=== PATIENT | female | born 1960 | race Caucasian/White ===

== ENCOUNTER → 2018-04-27 | Outpatient (CLI) | payer OTHER ==
--- NOTE | 2018-04-28 11:03 | Diagnostic Imaging Report ---
Indication: Routine screening. Comparison is made with prior mammogram from 08/25/2016 and 07/31/2015. 2-D and 3-D bilateral screening mammography was performed with CAD. Scattered fibroglandular densities are identified bilaterally. The parenchymal pattern is stable. No mass or malignant-appearing microcalcifications are seen. The axillae are unremarkable. Impression: BI-RADS category 1 No mammographic features suspicious for malignancy are identified. ACR BI-RADS Category 1: Negative. Result letter will be mailed to the patient. Note: At least 10% of breast cancer is not imaged by mammography. Dictated by: Dictated on workstation # [id number]
== END ==
LOC: RAD 15:33
PROVIDERS: ATTEND Obstetrics & Gynecology
DX: Z12.31 Encounter for screening mammogram for malignant neoplasm of breast (principal)
CPT/HCPCS: 77067

== ENCOUNTER 2018-05-06 10:26 | Outpatient (CLI) | payer OTHER ==
[~2018-05-06] VITALS: Ht 160 cm; Wt 53.3 kg
[2018-05-06] MEDS ORDERED: MEDR2.5T6 PO (10:43)
[2018-05-06] MEDS ORDERED: ESTR1TAB24 PO (10:43)
[2018-05-06] MEDS ORDERED: METO-387 PO (10:43)
[2018-05-06] MEDS ORDERED: ASPI-586 PO (10:43)
[2018-05-06 10:45] VITALS: BP 116/81
[2018-05-06 11:20] LABS: BASOPHILS % (AUTO) 1 % (0-10); EOSINOPHILS # (AUTO) 0.3 10^3/uL (0.0-0.3); EOSINOPHILS % (AUTO) 4 % (0-10); HEMATOCRIT 40 % (35-52); HEMOGLOBIN 13.3 G/DL (11.5-16.0); LYMPHOCYTES # (AUTO) 2.7 X 10^3 (1.0-4.0); LYMPHOCYTES % (AUTO) 41 % (12-44); MEAN CORPUSCULAR HEMOGLOBIN 32 PG (25-34); MEAN CORPUSCULAR HGB CONC 33 G/DL (32-36); MEAN CORPUSCULAR VOLUME 96 FL (80-99); MEAN PLATELET VOLUME 9.3 FL (7.4-10.4); MONOCYTES # (AUTO) 0.5 X 10^3 (0.0-1.0); MONOCYTES % (AUTO) 7 % (0-12); NEUTROPHILS # (AUTO) 3.2 X 10^3 (1.8-7.8); NEUTROPHILS % (AUTO) 48 % (42-75); PLATELET COUNT 257 10^3/uL (130-400); RED BLOOD COUNT 4.16 10^6/uL (4.35-5.85); RED CELL DISTRIBUTION WIDTH 12.1 % (10.0-14.5); WHITE BLOOD COUNT 6.6 10^3/uL (4.3-11.0)
== END 2018-05-06 12:17 | disposition home or self-care (01) ==
LOC: PREOP 10:26
PROVIDERS: ATTEND Obstetrics & Gynecology
DX: Z01.812 Encounter for preprocedural laboratory examination (principal); Z11.2 Encounter for screening for other bacterial diseases; N95.0 Postmenopausal bleeding; D64.9 Anemia, unspecified
CPT/HCPCS: 36415; 85025; 86850; 86900; 86901; 87081

== ENCOUNTER 2018-05-13 12:10 | Day surgery (SDC) | payer OTHER ==
[~2018-05-13] VITALS: Ht 160 cm; Wt 51.7 kg
[~2018-05-13 12:10] MED LIST: ASPI-586 PO; ESTR1TAB24 PO; MEDR2.5T6 PO; METO-387 PO
--- OUTSIDE RECORDS SUMMARY | 2018-05-13 12:18 | XMS REPORT ---
Author Author BREE CHRISTENSEN [facility] Address [address] [place] [address] Care Team Providers Care Disaster Response Director Name Role Phone BREE CHRISTENSEN Unavailable PROBLEMS Type Condition ICD9-CM Code PXT44-BB Code Onset Dates Condition Status SNOMED Code Problem ZOSTAVAX DX V05.8 Active 97187456 Problem Dysuria 788.1 Active 23472577 Problem Need for prophylactic vaccination and inoculation, Influenza V04.81 Active 176238112 Problem Periodontal disease, unspecified K05.6 Active 0722356 Problem Allergy, subsequent encounter T78.40XD Active 342548822 Problem Unspecified essential hypertension 401.9 Active 71148960 Problem Lateral epicondylitis of elbow 726.32 Active 021555527 Problem Encounter for immunization Z23 Active 156386553 Problem Pure hypercholesterolemia 272.0 Active 680961031 ALLERGIES No Information ENCOUNTERS Encounter Location Date Diagnosis [facility] [address] [address] Feb, Encounter for immunization Z23 [facility] [address] [id number] Jan, Periodontal disease, unspecified K05.6 and Encounter for dental examination and cleaning without abnormal findings Z01.20 [facility] [address] [id number] Nov, Dental examination Z01.20 [facility] [address] [address] Nov, Tooth sensitivity K03.89 [facility] [address] [id number] Oct, Dental examination Z01.20 [facility] [id number] [place] [address] [id number] September, Dental examination Z01.20 [facility] [address] [id number] [address] September, [facility] [id number] [place] [address] 09294- 0636 September, [facility] [id number] [place] [address] [id number] Aug, Dental examination Z01.20 [facility] [id number] [place] [address] [id number] Aug, Dental examination Z01.20 [facility] [id number] [place] [address] [id number] Jul, Dental examination Z01.20 [facility] [id number] [place] [address] 18522- 0256 Jul, Dental examination Z01.20 [facility] [id number] [place] [address] 09027- 7860 Feb, Encounter for immunization Z23 [facility] [id number] [place] [address] 46715- 3282 Jan, Dental examination Z01.20 [facility] [id number] [place] [address] 90690- 7933 Dec, Dental examination Z01.20 [facility] [address] [place] [address] 19747- 3628 Aug, Allergy, subsequent encounter T78.40XD [facility] [address] [place] [address] 26894- 2298 Jul, Dental examination Z01.20 [facility] [id number] [place] [address] 52994- 2440 Feb, [facility] [id number] [place] [address] 87938- 4220 Dec, Dental examination Z01.20 [facility] [id number] [place] [address] [phone] -[phone] 16 Jul, 2015 [facility] [id number] [place] [address] 12408- 1392 15 Jul, 2015 Encounter for dental examination and cleaning without abnormal findings Z01.20 [facility] [id number] [place] [address] 08090- 4625 15 Jul, 2015 Encounter for immunization Z23 [facility] [id number] [place] [address] [phone] -[phone] 03 Jul, 2015 Needlestick injury accident W27.3XXA [facility] [address] 15479- 4116 Feb, Encounter for immunization Z23 [facility] [id number] [place] [address] [id number] Dec, Dental examination V72.2 [facility] [address] [id number] Nov, Dental examination V72.2 [facility] [id number] [place] [address] 21985- 3035 Oct, [facility] [id number] [place] [address] 68765- 0434 September, [facility] [id number] [place] [address] 01860- 7259 September, [facility] [id number] [place] [address] 61176- 7125 September, [facility] [id number] [place] [address] 63296- 9392 Aug, [facility] [id number] [place] [address] 42597- 4189 Aug, [facility] [id number] [place] [address] 53347- 4976 May, [facility] [id number] [place] [address] 41541- 6896 May, [facility] [place] [facility] [address] [id number] [place] [address]- 9966 Mar, [facility] [place] [facility] [address] [id number] [place] [address]- 3526 Mar, [facility] [place] [facility] [address] [id number] [place] [address]- 1056 Feb, [facility] [place] [facility] [address] [id number] [place] [address]- 9634 Feb, [facility] [place] [facility] [address] [id number] [place] [address]- 6212 Dec, [facility] [place] [facility] [address] [id number] [place] [address]- 9452 Dec, [facility] [place] [facility] [address] [id number] [place] [address]- 3168 Nov, [facility] [place] [facility] [address] [id number] [place] [address]- 9160 Nov, [facility] [place] [facility] [address] [id number] [place] [address]- 6766 Nov, [facility] [place] [facility] [address] [id number] [place] [address]- 3701 Nov, [facility] [place] [facility] [address] [id number] [place] [address]- 7521 Oct, [facility] [place] [facility] [address] [id number] [place] [address]- 2308 Oct, [facility] [place] [facility] [address] [id number] [place] [address]- 2876 Oct, [facility] [place] [facility] [address] [id number] [place] [address]- 5823 May, [facility] [place] [facility] [address] [id number] [place] [address]- 2410 May, [facility] [place] [facility] [address] [id number] [place] [address]- 7706 May, [facility] [address] [id number] [place] [address]- 1930 May, [facility] [place] [facility] [address] [id number] [place] [address]- 5565 May, [facility] [address] [id number] [place] [address]- 4918 May, [facility] [place] [facility] [address] [id number] [place] [address]- 3616 Apr, [facility] [address] [id number] [place] [address]- 5480 Apr, [facility] [place] [facility] [address] [id number] [place] [address]- 9788 Feb, [facility] [address] [facility] [id number] [place] [address]- 2781 Feb, [facility] [address] [id number] [place] [address]- 5076 Apr, [facility] [place] [facility] [address] [id number] [place] [address]- 4632 Apr, [facility] [address] [facility] [id number] [place] [address]- 2306 Feb, [facility] [place] [facility] [address] [id number] [place] [address]- 4459 Feb, [facility] [place] [facility] [address] [id number] [place] [address]- 4605 Feb, [facility] [place] [facility] [address] [id number] [place] [address]- 0874 Feb, [facility] [place] [facility] [address] [facility] [id number] [place] [address]- 3518 Oct, [facility] [place] [facility] [address] [id number] [place] [address]- 3620 Jul, [facility] [address] [facility] [id number] [address]- 2546 May, [facility] [address] [id number] [address]- 2546 May, [facility] [address] [id number] [address]- 2546 May, [facility] [address] [address]- 2546 May, [facility] [address] [id number], [place] [address]- 2546 Mar, [facility] [address] [address]- 5196 Apr, [facility] [address] [id number] [address]- 2546 Feb, [facility] [address] [id number] [address]- 2816 Feb, IMMUNIZATIONS Vaccine Route Administration Date Status FLULAVAL QUAD 0.5ML (6 MO & UP) 2017 IM Intramuscular Mar 10, 2018 Administered SOCIAL HISTORY Never Assessed REASON FOR VISIT Flu shot- Robin Ying RN PLAN OF CARE VITAL SIGNS MEDICATIONS Unknown Medications RESULTS No Results PROCEDURES Procedure Date Ordered Result Body Site FLULAVAL QUAD 0.5ML (6 MO AND UP) 2018 Mar 10, 2018 SINGLE IMMUNIZATION ADMIN Mar 10, 2018 INSTRUCTIONS MEDICATIONS ADMINISTERED No Known Medications
--- OUTSIDE RECORDS SUMMARY | 2018-05-13 12:18 | XMS REPORT ---
Author Author JERICA CHE [facility] Address [address] [place] [address] Care Team Providers Care Pig Machine Operator Helper Name Role Phone JERICA CHE Unavailable PROBLEMS Type Condition ICD9-CM Code XUF05-XF Code Onset Dates Condition Status SNOMED Code Problem ZOSTAVAX DX V05.8 Active 05246848 Problem Dysuria 788.1 Active 46058166 Problem Need for prophylactic vaccination and inoculation, Influenza V04.81 Active 424334537 Problem Periodontal disease, unspecified K05.6 Active 5965437 Problem Allergy, subsequent encounter T78.40XD Active 192747070 Problem Unspecified essential hypertension 401.9 Active 74565154 Problem Lateral epicondylitis of elbow 726.32 Active 927132985 Problem Encounter for immunization Z23 Active 474661846 Problem Pure hypercholesterolemia 272.0 Active 344443544 ALLERGIES No Known Allergies ENCOUNTERS Encounter Location Date Diagnosis [facility] [id number] [place] [address] [id number] Jan, Periodontal disease, unspecified K05.6 and Encounter for dental examination and cleaning without abnormal findings Z01.20 [facility] [id number] [place] [address] [id number] Nov, Dental examination Z01.20 [facility] [place] [id number] [place] [address] [id number] 3744 Nov, Tooth sensitivity K03.89 [facility] [id number] [place] [address] [id number] Oct, Dental examination Z01.20 [facility] [id number] [place] [address] [phone] September, Dental examination Z01.20 [facility] [place] [id number] [place] [address] 43952 2546 September, [facility] [place] [address], [place] [address]- 7076 September, [facility] [address] [id number] Aug, Dental examination Z01.20 [facility] [address] [id number] Aug, Dental examination Z01.20 [facility] [id number] [place] [address] [id number] Jul, Dental examination Z01.20 [facility] [place] [id number] [place] [address] 15230- 2906 Jul, Dental examination Z01.20 [facility] [place] [address] [place] [address] 203875- 3786 Feb, Encounter for immunization Z23 [facility] [place] [id number] [place] [address] 937794- 6866 Jan, Dental examination Z01.20 [facility] [place] [address] [place] [address] 77765- 0383 Dec, Dental examination Z01.20 [facility] [place] [address], [place] [address]- 8816 Aug, Allergy, subsequent encounter T78.40XD [facility] [place] [address], [place] [address]- 1826 Jul, Dental examination Z01.20 [facility] [place] [address] 3624 Feb, [facility] [place] [address] 4416 Dec, Dental examination Z01.20 [facility] [address], [place] [address] -2046 Jul, [facility] [place] [address]- 1295 15 Jul, 2015 Encounter for dental examination and cleaning without abnormal findings Z01.20 [facility] [place] [id number] [place] [address] 67492- 4336 15 Jul, 2015 Encounter for immunization Z23 [facility] [address] [place] [address] [phone] -[phone] 03 Jul, 2015 Needlestick injury accident W27.3XXA [facility] [place] [id number] [place] [address] 78401- 9876 Feb, Encounter for immunization Z23 [facility] [id number] [place] [address] [id number] Dec, Dental examination V72.2 [facility] [address] [id number] Nov, Dental examination V72.2 [facility] [place] [id number] [place] [address] 80616- 6126 Oct, [facility] [place] [address] [place] [address] 43260- 7253 September, [facility] [place] [id number] [place] [address] 34708- 2811 September, [facility] [place] [address], [place] [address]- 2787 September, [facility] [place] [address] [place] [address] 52356- 5946 Aug, [facility] [place] [address] [place] [address] 70359- 1450 Aug, [facility] [place] [id number] [place] [address] 225926- 3368 14 May, 2014 [facility] [place] [address] [place] [address] 790312- 5908 14 May, 2014 [facility] [place] [id number] [place] [address] 19737- 2618 Mar, [facility] [place] [facility] [address] [id number] [place] [address]- 5939 Mar, [facility] [place] [facility] [address] [id number] [place] [address]- 8988 Feb, [facility] [place] [facility] [address] [id number] [place] [address]- 1984 Feb, [facility] [place] [facility] [address] [id number] [place] [address]- 8838 Dec, [facility] [place] [facility] [address] [id number] [place] [address]- 5288 Dec, [facility] [place] [facility] [address] [id number] [place] [address]- 4808 Nov, [facility] [place] [facility] [address] [id number] [place] [address]- 5413 Nov, [facility] [place] [facility] [address] [id number] [place] [address]- 6956 Nov, [facility] [place] [facility] [address] [id number] [place] [address]- 5895 Nov, [facility] [place] [facility] [address] [facility] [id number] [place] [address]- 4366 Oct, [facility] [place] [facility] [address] [id number] [place] [address]- 0284 Oct, [facility] [place] [facility] [address] [id number] [place] [address]- 1931 Oct, [facility] [place] [facility] [address] [id number] [place] [address]- 4946 May, [facility] [place] [facility] [address] [id number] [place] [address]- 7403 May, [facility] [place] [facility] [address] [id number] [place] [address]- 0836 May, [facility] [place] [facility] [address] [id number] [place] [address]- 1050 May, [facility] [place] [facility] [address] [id number] [place] [address]- 0461 May, [facility] [place] [facility] [address] [id number] [place] [address]- 1856 May, [facility] [place] [facility] [address] [id number] [place] [address]- 0038 Apr, [facility] [place] [facility] [address] [id number] [place] [address]- 4282 Apr, [facility] [place] [facility] [address] [id number] [place] [address]- 5949 Feb, [facility] [place] [facility] [address] [id number] [place] [address]- 8170 Feb, [facility] [place] [facility] [address] [id number] [place] [address]- 7658 Apr, [facility] [place] [facility] [address] [id number] [place] [address]- 2348 Apr, [facility] [place] [facility] [address] [id number] [place] [address]- 5352 Feb, [facility] [place] [facility] [address] [id number] [place] [address]- 5136 Feb, [facility] [place] [facility] [address] [id number] [place] [address]- 6336 Feb, [facility] [place] [facility] [address] [id number] [place] [address]- 5369 Feb, [facility] [place] [facility] [address] [id number] [place] [address]- 2944 Oct, [facility] [place] [facility] [address] [id number] [place] [address]- 1586 Jul, [facility] [place] [facility] [address] [id number] [place] [address]- 0791 May, [facility] [place] [address] [facility] [id number], [place] [address]- 1156 May, [facility] [place] [address] [id number], [place] [address]- 9020 May, [facility] [place] [address] [id number], [place] [address]- 9498 May, [facility] [place] [address] 1525 Mar, [facility] [place] [id number], [place] [address]- 2217 Apr, [facility] [place] [address], [place] [address]- 2377 Feb, [facility] [place] [address], [place] [address]- 1843 Feb, IMMUNIZATIONS No Known Immunizations SOCIAL HISTORY Never Assessed REASON FOR VISIT Dental Hygiene Recare PLAN OF CARE Activity Details Follow Up 6 Months Reason:recare 3011 VITAL SIGNS Height 63 in 2018-02-03 Blood pressure systolic 122 mmHg 2018-02-03 Blood pressure diastolic 78 mmHg 2018-02-03 MEDICATIONS Medication Instructions Dosage Frequency Start Date End Date Duration Status Pseudoephedrine HCl 60 mg Orally every 6 hrs 1 tablet as needed 6h 24 Aug, 2016 0 days Active Progesterone 100 MG Orally Once a day 2 capsules at bedtime 24h Active Aspirin Adult Low Dose Active Sudafed 30 mg Orally every 6 hrs 1-2 tablet as needed 6h 18 Feb, 2016 Active Estradiol 1 MG Orally Once a day 1 tablet 24h Active Provera 2.5 MG Orally Once a day 2 tablets 24h Not-Taking Estriol Not-Taking Metoprolol Tartrate 25 MG Orally Twice a day 1 tablet 12h Active Chlorhexidine Gluconate 0.12 % Mouth/Throat twice a day as directed 12h 7 days Not-Taking Toprol XL 25 MG Orally Once a day 1 tablet 24h 08 Oct, 2014 Not- Taking RESULTS No Results PROCEDURES Procedure Date Ordered Result Body Site PERIODIC ORAL EXAMINATION Feb 03, 2018 PROPHYLAXIS - ADULT Feb 03, 2018 [facility] Employee/Board adjustment Feb 03, 2018 TOPICAL FLUORIDE VARNISH Feb 03, 2018 Billing Notes on claim Feb 03, 2018 INSTRUCTIONS MEDICATIONS ADMINISTERED No Known Medications
--- OUTSIDE RECORDS SUMMARY | 2018-05-13 12:18 | XMS REPORT ---
Author Author JOSELORELEI BRUNO [facility] Address Unknown Care Team Providers Care Greek Professor Name Role Phone LORELEI GONZALEZ Unavailable PROBLEMS Type Condition ICD9-CM Code EPC46-KU Code Onset Dates Condition Status SNOMED Code Problem ZOSTAVAX DX V05.8 Active 85050336 Problem Dysuria 788.1 Active 62387215 Problem Need for prophylactic vaccination and inoculation, Influenza V04.81 Active 917781838 Problem Periodontal disease, unspecified K05.6 Active 4224944 Problem Allergy, subsequent encounter T78.40XD Active 065303042 Problem Unspecified essential hypertension 401.9 Active 84692022 Problem Lateral epicondylitis of elbow 726.32 Active 825114926 Problem Encounter for immunization Z23 Active 325611254 Problem Pure hypercholesterolemia 272.0 Active 277371253 ALLERGIES No Known Allergies ENCOUNTERS Encounter Location Date Diagnosis [facility] [id number] [place] [address] [phone] Jan, Periodontal disease, unspecified K05.6 and Encounter for dental examination and cleaning without abnormal findings Z01.20 [facility] [id number] [place] [address] [phone] Nov, Dental examination Z01.20 [facility] [address] [place] [address] [id number]- [phone] Nov, Tooth sensitivity K03.89 [facility] [id number] [place] [address] [phone] Oct, Dental examination Z01.20 [facility] [id number] [place] [address] [id number] September, Dental examination Z01.20 [facility] [id number] [place] [address] [phone] September, [facility] [address] [address] 6906 September, [facility] [id number] [place] [address] [phone] Aug, Dental examination Z01.20 [facility] [id number] [place] [address] [id number] Aug, Dental examination Z01.20 [facility] [id number] [place] [address] [phone] Jul, Dental examination Z01.20 [facility] [id number] [place] [address] 19619- 3446 Jul, Dental examination Z01.20 [facility] [id number] [place] [address] [phone]- 2806 Feb, Encounter for immunization Z23 [facility] [id number] [place] [address] 51603- 6045 Jan, Dental examination Z01.20 [facility] [id number] [place] [address] 51174- 9585 Dec, Dental examination Z01.20 [facility] [id number] [place] [address] 99467- 5506 Aug, Allergy, subsequent encounter T78.40XD [facility] [id number] [place] [address] 47711- 2429 Jul, Dental examination Z01.20 [facility] [id number] [place] [address] 56022- 1194 Feb, [facility] [id number] [place] [address] 26051- 0462 Dec, Dental examination Z01.20 [facility] [address] [address] Jul, [facility] [id number] [place] [address] 50743- 6408 Jul, Encounter for dental examination and cleaning without abnormal findings Z01.20 [facility] [address] [address]- 4107 15 Jul, 2015 Encounter for immunization Z23 [facility] [id number] [place] [address] [phone] -[phone] 03 Jul, 2015 Needlestick injury accident W27.3XXA [facility] [id number] [place] [address] 62254- 0026 Feb, Encounter for immunization Z23 [facility] [id number] [place] [address] [phone] Dec, Dental examination V72.2 [facility] [id number] [place] [address] [id number] Nov, Dental examination V72.2 [facility] [id number] [place] [address] 89069- 7467 Oct, [facility] [id number] [place] [address] 36421- 3559 September, [facility] [id number] [place] [address] 27548- 7910 September, [facility] [id number] [place] [address] 67825- 6548 September, [facility] [id number] [place] [address] 91773- 1171 Aug, [facility] [id number] [place] [address] 02610- 0104 Aug, [facility] [id number] [place] [address] 56983- 0477 May, [facility] [id number] [place] [address] 85212- 2814 May, [facility] [address] [place] [address] 43833- 9543 Mar, [facility] [place] [facility] [address] [id number] [place] [address]- 2546 Mar, [facility] [place] [facility] [address] [id number] [place] [address]- 4732 Feb, [facility] [place] [facility] [address] [id number] [place] [address]- 2546 Feb, [facility] [place] [facility] [address] [id number] [place] [address]- 2546 Dec, [facility] [place] [facility] [address] [id number] [place] [address]- 6746 Dec, [facility] [place] [facility] [address] [id number] [place] [address]- 7715 Nov, [facility] [place] [facility] [address] [id number] [place] [address]- 6107 Nov, [facility] [place] [facility] [address] [id number] [place] [address]- 1084 Nov, [facility] [place] [facility] [address] [id number] [place] [address]- 7194 Nov, [facility] [place] [facility] [address] [id number] [place] [address]- 8787 Oct, [facility] [place] [facility] [address] [id number] [place] [address]- 3061 Oct, [facility] [place] [facility] [address] [id number] [place] [address]- 7265 Oct, [facility] [place] [facility] [address] [id number] [place] [address]- 7049 May, [facility] [place] [facility] [address] [id number] [place] [address]- 9652 May, [facility] [place] [facility] [address] [id number] [place] [address]- 5486 May, [facility] [place] [facility] [address] [id number] [place] [address]- 7877 May, [facility] [place] [facility] [address] [id number] [place] [address]- 0439 May, [facility] [place] [facility] [address] [id number] [place] [address]- 3247 May, [facility] [place] [facility] [address] [id number] [place] [address]- 7558 Apr, [facility] [place] [facility] [address] [id number] [place] [address]- 6728 Apr, [facility] [place] [facility] [address] [id number] [place] [address]- 3256 Feb, [facility] [place] [facility] [address] [id number] [place] [address]- 4043 Feb, [facility] [place] [facility] [address] [id number] [place] [address]- 3194 Apr, [facility] [place] [facility] [address] [id number] [place] [address]- 0277 Apr, [facility] [place] [facility] [address] [id number] [place] [address]- 5203 Feb, [facility] [place] [facility] [address] [id number] [place] [address]- 8187 Feb, [facility] [place] [facility] [address] [id number] [place] [address]- 1055 Feb, [facility] [place] [facility] [address] [id number] [place] [address]- 4306 Feb, [facility] [place] [facility] [address] [id number] [place] [address]- 0465 Oct, [facility] [place] [facility] [address] [id number] [place] [address]- 1486 Jul, [facility] [place] [facility] [address] [id number] [place] [address]- 0584 May, [facility] [place] [facility] [address] [facility] [id number] [place] [address]- 2154 May, [facility] [address] [facility] [id number] [place] [address]- 1911 May, [facility] [address] [facility] [id number] [place] [address]- 5507 May, [facility] [address] [facility] [id number] [place]- 2913 Mar, [facility] [address] [facility] [id number] [place] [address]- 2889 Apr, [facility] [address] [facility] [id number] [place] [address]- 4265 Feb, [facility] [address] [facility] [id number] [place] [address]- 6417 Feb, IMMUNIZATIONS No Known Immunizations SOCIAL HISTORY Never Assessed REASON FOR VISIT jeremias PLAN OF CARE Activity Details Follow Up prn Reason:as needed VITAL SIGNS Height 63 in 2017-12-22 Blood pressure systolic 131 mmHg 2017-12-22 Blood pressure diastolic 79 mmHg 2017-12-22 MEDICATIONS Medication Instructions Dosage Frequency Start Date End Date Duration Status Aspirin Adult Low Dose Active Metoprolol Tartrate 25 MG Orally Twice a day 1 tablet 12h Active Estradiol 1 MG Orally Once a day 1 tablet 24h Active Toprol XL 25 MG Orally Once a day 1 tablet 24h 08 Oct, 2014 Not- Taking Progesterone 100 MG Orally Once a day 2 capsules at bedtime 24h Active Sudafed 30 mg Orally every 6 hrs 1-2 tablet as needed 6h 18 Feb, 2016 Active Chlorhexidine Gluconate 0.12 % Mouth/Throat twice a day as directed 12h 7 days Active Pseudoephedrine HCl 60 mg Orally every 6 hrs 1 tablet as needed 6h Aug, 0 days Active Provera 2.5 MG Orally Once a day 2 tablets 24h Not-Taking Estriol Not-Taking RESULTS No Results PROCEDURES Procedure Date Ordered Result Body Site LTD ORAL EVALUATION - PROBLEM FOCUS December 22, 2017 [facility] Employee/Board adjustment December 22, 2017 Billing Notes on claim December 22, 2017 INSTRUCTIONS MEDICATIONS ADMINISTERED No Known Medications
--- OUTSIDE RECORDS SUMMARY | 2018-05-13 12:18 | XMS REPORT ---
Author Author YAHAIRA GALLAGHER [facility] Address [address] [place] [address] Care Team Providers Care Pattern Grader Name Role Phone YAHAIRA GALLAGHER Unavailable PROBLEMS Type Condition ICD9-CM Code WKO50-QD Code Onset Dates Condition Status SNOMED Code Problem ZOSTAVAX DX V05.8 Active 27921166 Problem Dysuria 788.1 Active 74132307 Problem Need for prophylactic vaccination and inoculation, Influenza V04.81 Active 955222402 Problem Periodontal disease, unspecified K05.6 Active 3482362 Problem Allergy, subsequent encounter T78.40XD Active 424886072 Problem Unspecified essential hypertension 401.9 Active 21074536 Problem Lateral epicondylitis of elbow 726.32 Active 114807704 Problem Encounter for immunization Z23 Active 426653652 Problem Pure hypercholesterolemia 272.0 Active 904822650 ALLERGIES No Information ENCOUNTERS Encounter Location Date Diagnosis [facility] [address] [id number] Jan, Periodontal disease, unspecified K05.6 and Encounter for dental examination and cleaning without abnormal findings Z01.20 [facility] [id number] [place] [address] [id number] Nov, Dental examination Z01.20 [facility] [id number] [place] [address] [phone]- 7269 Nov, Tooth sensitivity K03.89 [facility] [id number] [place] [address] [phone] Oct, Dental examination Z01.20 [facility] [id number] [place] [address] [id number] September, Dental examination Z01.20 [facility] [id number] [place] [address] [phone] September, [facility] [address] [address]- 4886 September, [facility] [id number] [place] [address] [id number] Aug, Dental examination Z01.20 [facility] [id number] [place] [address] [phone] Aug, Dental examination Z01.20 [facility] [id number] [place] [address] [id number] Jul, Dental examination Z01.20 [facility] [id number] [place] [address] 01875- 6356 Jul, Dental examination Z01.20 [facility] [id number] [place] [address] 248048- 8876 Feb, Encounter for immunization Z23 [facility] [id number] [place] [address] 23991- 6561 Jan, Dental examination Z01.20 [facility] [address] [place] [address] 58795- 5099 Dec, Dental examination Z01.20 [facility] [id number] [place] [address] 42447- 2378 Aug, Allergy, subsequent encounter T78.40XD [facility] [address] [place] [address] 16092- 8994 Jul, Dental examination Z01.20 [facility] [address] [place] [address] 979998- 2176 Feb, [facility] [id number] [place] [address] 163436- 0604 Dec, Dental examination Z01.20 [facility] [address] [address] -1108 Jul, [facility] [id number] [place] [address] 92107- 9426 15 Jul, 2015 Encounter for dental examination and cleaning without abnormal findings Z01.20 [facility] [address] [address]- 2676 15 Jul, 2015 Encounter for immunization Z23 [facility] [address] [address] 2546 03 Jul, 2015 Needlestick injury accident W27.3XXA [facility] [id number] [place] [address] 22469- 8636 Feb, Encounter for immunization Z23 [facility] [id number] [place] [address] [id number] Dec, Dental examination V72.2 [facility] [id number] [place] [address] [id number] Nov, Dental examination V72.2 [facility] [id number] [place] [address] 64540- 2946 Oct, [facility] [address] [place] [address] 04268- 2180 September, [facility] [id number] [place] [address] 773279- 2416 September, [facility] [address] [place] [address] 638958- 6029 September, [facility] [address] [place] [address] 653585- 2374 Aug, [facility] [address] [place] [address] 51660- 9065 Aug, [facility] [id number] [place] [address] 12835- 4910 May, [facility] [address] [address]- 6146 May, [facility] [address] [place] [address] 56846- 8958 Mar, [facility] [place] [facility] [address] [id number] [place] [address]- 2743 Mar, [facility] [place] [facility] [address] [id number] [place] [address]- 7827 Feb, [facility] [place] [facility] [address] [id number] [place] [address]- 4466 Feb, [facility] [place] [facility] [address] [id number] [place] [address]- 6371 Dec, [facility] [place] [facility] [address] [id number] [place] [address]- 0444 Dec, [facility] [place] [facility] [address] [id number] [place] [address]- 6499 Nov, [facility] [place] [facility] [address] [id number] [place] [address]- 6241 Nov, [facility] [place] [facility] [address] [id number] [place] [address]- 5943 Nov, [facility] [place] [facility] [address] [id number] [place] [address]- 7525 Nov, [facility] [place] [facility] [address] [id number] [place] [address]- 6111 Oct, [facility] [place] [facility] [address] [id number] [place] [address]- 6214 Oct, [facility] [place] [facility] [address] [id number] [address]- 6502 Oct, [facility] [place] [facility] [address] [id number] [place] [address]- 2921 May, [facility] [place] [facility] [address] [id number] [place] [address]- 5055 May, [facility] [place] [facility] [address] [id number] [place] [address]- 6648 May, [facility] [place] [facility] [address] [id number] [place] [address]- 1274 May, [facility] [place] [facility] [address] [id number] [place] [address]- 4312 May, [facility] [place] [facility] [address] [id number] [place] [address]- 7273 May, [facility] [place] [facility] [address] [id number] [place] [address]- 1168 Apr, [facility] [place] [facility] [address] [id number] [place] [address]- 3624 Apr, [facility] [place] [facility] [address] [id number] [place] [address]- 5616 Feb, [facility] [place] [facility] [address] [id number] [place] [address]- 2896 Feb, [facility] [place] [facility] [address] [id number] [place] [address]- 6299 Apr, [facility] [place] [facility] [address] [id number] [place] [address]- 5018 Apr, [facility] [place] [facility] [address] [id number] [place] [address]- 2953 Feb, [facility] [place] [facility] [address] [facility] [id number] [place] [address]- 8501 Feb, [facility] [place] [facility] [address] [id number] [place] [address]- 5470 Feb, [facility] [place] [facility] [address] [id number] [place] [address]- 5558 Feb, [facility] [place] [facility] [address] [id number] [place] [address]- 8124 Oct, [facility] [place] [facility] [address] [id number] [place] [address]- 1785 Jul, [facility] [place] [facility] [address] [facility] [id number] [place] [address]- 0155 May, [facility] [place] [facility] [id number] [address] 2546 May, [facility] [address] [address]- 0176 May, [facility] [address] [address]- 2546 May, [facility] [address] [address] 2546 Mar, [facility] [address] [address]- 7812 Apr, [facility] [address] [address]- 3536 Feb, [facility] [address] [address]- 0127 Feb, IMMUNIZATIONS No Known Immunizations SOCIAL HISTORY Never Assessed REASON FOR VISIT Dental Assessment PLAN OF CARE Activity Details Follow Up prn Reason: VITAL SIGNS MEDICATIONS No Known Medications RESULTS No Results PROCEDURES Procedure Date Ordered Result Body Site INTRAORL-PERIAPICAL 1 FILM 47310 December 16, 2017 INTRAORL-PERIAPICAL EA ADD FILM December 16, 2017 SCREENING OF A PATIENT December 16, 2017 BITEWING - SINGLE FILM December 16, 2017 Billing Notes on claim December 16, 2017 [facility] Employee/Board adjustment December 16, 2017 INSTRUCTIONS MEDICATIONS ADMINISTERED No Known Medications
--- OUTSIDE RECORDS SUMMARY | 2018-05-13 12:19 | XMS REPORT ---
Author Author LORELEI GONZALEZ [facility] Address Unknown Care Team Providers Care Business Excellence Leader Name Role Phone LORELEI GONZALEZ Unavailable PROBLEMS Type Condition ICD9-CM Code KRJ25-HY Code Onset Dates Condition Status SNOMED Code Problem Need for prophylactic vaccination and inoculation, Influenza V04.81 Active 605861873 Problem ZOSTAVAX DX V05.8 Active 94827991 Problem Allergy, subsequent encounter T78.40XD Active 284658919 Problem Encounter for immunization Z23 Active 550563274 Problem Lateral epicondylitis of elbow 726.32 Active 191131671 Problem Dysuria 788.1 Active 74808996 Problem Pure hypercholesterolemia 272.0 Active 690844084 Problem Unspecified essential hypertension 401.9 Active 67983801 ALLERGIES No Known Allergies ENCOUNTERS Encounter Location Date Diagnosis [facility] [id number] [place] [address] 97702- 2332 Dec, [facility] [id number] [place] [address] [id number] Nov, Dental examination Z01.20 [facility] [id number] [place] [address] 94673- 6616 Nov, Tooth sensitivity K03.89 [facility] [id number] [place] [address] [id number] Oct, Dental examination Z01.20 [facility] [id number] [place] [address] [id number] September, Dental examination Z01.20 [facility] [id number] [place] [address] 69274- 2438 September, [facility] [id number] [place] [address] 10103- 0533 September, [facility] [address] [id number] Aug, Dental examination Z01.20 [facility] [id number] [place] [address] [id number] Aug, Dental examination Z01.20 [facility] [id number] [place] [address] [id number] Jul, Dental examination Z01.20 [facility] [id number] [place] [address] 693707- 0734 Jul, Dental examination Z01.20 [facility] [id number] [place] [address] 63352- 9840 Feb, Encounter for immunization Z23 [facility] [id number] [place] [address] 83517- 9812 Jan, Dental examination Z01.20 [facility] [id number] [place] [address] 48631- 0912 Dec, Dental examination Z01.20 [facility] [id number] [place] [address] 30941- 9021 Aug, Allergy, subsequent encounter T78.40XD [facility] [id number] [place] [address] 28038- 8283 Jul, Dental examination Z01.20 [facility] [address] [place] [address] 89734- 4382 Feb, [facility] [id number] [place] [address] 23097- 2201 Dec, Dental examination Z01.20 [facility] [id number] [place] [address] 77456 -6084 Jul, [facility] [id number] [place] [address] 59683- 6399 15 Jul, 2015 Encounter for dental examination and cleaning without abnormal findings Z01.20 [facility] [id number] [place] [address] 99338- 1226 15 Jul, 2015 Encounter for immunization Z23 [facility] [address] [address]2108 Jul, Needlestick injury accident W27.3XXA [facility] [address], [place] [address]- 8145 Feb, Encounter for immunization Z23 [facility] [id number] [place] [address] [phone] Dec, Dental examination V72.2 [facility] [id number] [place] [address] [id number] Nov, Dental examination V72.2 [facility] [id number] [place] [address] 69355- 7516 Oct, [facility] [id number] [place] [address] 80530- 2345 September, [facility] [id number] [place] [address] 37470- 3209 September, [facility] [id number] [place] [address] 70754- 7122 September, [facility] [id number] [place] [address] 73231- 5002 Aug, [facility] [address], [place] [address]- 2895 Aug, [facility] [address], [place] [address]- 8547 May, [facility] [address], [place] [address]- 1601 May, [facility] [address] 0823 Mar, [facility] [address] 3684 Mar, [facility] [id number] [place] [address]- 2546 Feb, [facility] [place] [facility] [address] [id number] [place] [address]- 6905 Feb, [facility] [place] [facility] [address] [id number] [place] [address]- 2546 Dec, [facility] [place] [facility] [address] [id number] [place] [address]- 5536 Dec, [facility] [place] [facility] [address] [id number] [place] [address]- 4067 Nov, [facility] [place] [facility] [address] [id number] [place] [address]- 6013 Nov, [facility] [place] [facility] [address] [id number] [place] [address]- 2916 Nov, [facility] [place] [facility] [address] [id number] [place] [address]- 8369 Nov, [facility] [place] [facility] [address] [id number] [place] [address]- 0561 Oct, [facility] [place] [facility] [address] [id number] [place] [address]- 9182 Oct, [facility] [place] [facility] [address] [id number] [place] [address]- 0874 Oct, [facility] [place] [facility] [address] [id number] [place] [address]- 9523 May, [facility] [place] [facility] [address] [id number] [place] [address]- 9944 May, [facility] [place] [facility] [address] [id number] [place] [address]- 7752 May, [facility] [place] [facility] [address] [id number] [place] [address]- 0426 May, [facility] [place] [facility] [address] [id number] [place] [address]- 6115 May, [facility] [place] [facility] [address] [id number] [place] [address]- 2884 May, [facility] [place] [facility] [address] [id number] [place] [address]- 5722 Apr, [facility] [place] [facility] [address] [id number] [place] [address]- 0654 Apr, [facility] [place] [facility] [address] [id number] [place] [address]- 7787 Feb, [facility] [place] [facility] [address] [id number] [place] [address]- 3708 Feb, [facility] [place] [facility] [address] [id number] [place] [address]- 0819 Apr, [facility] [place] [facility] [address] [id number] [place] [address]- 2979 Apr, [facility] [place] [facility] [address] [id number] [place] [address]- 4868 Feb, [facility] [place] [facility] [address] [id number] [place] [address]- 4708 Feb, [facility] [place] [facility] [address] [id number] [place] [address]- 0041 Feb, [facility] [place] [facility] [address] [id number] [place] [address]- 9543 Feb, [facility] [place] [facility] [address] [id number] [place] [address]- 4811 Oct, [facility] [place] [facility] [address] [id number] [place] [address]- 7085 Jul, [facility] [place] [facility] [address] [id number] [place] [address]- 9996 May, [facility] [place] [facility] [address] [id number] [place] [address]- 0357 May, [facility] [place] [facility] [address] [id number], [place] [address]- 3084 May, [facility] [address] [facility] [id number], [place] [address]- 4675 May, [facility] [address] [facility] [id number], [place] [address]- 1566 Mar, [facility] [address] [facility] [id number], [place] [address]- 8674 Apr, [facility] [address] [facility] [id number], [place] [address]- 7981 Feb, [facility] [address] [facility] [id number] 1863 Feb, IMMUNIZATIONS No Known Immunizations SOCIAL HISTORY Never Assessed REASON FOR VISIT #15 PLAN OF CARE Activity Details Follow Up prn Reason:GISSELL VITAL SIGNS Blood pressure systolic 118 mmHg 2017-10-29 Blood pressure diastolic 78 mmHg 2017-10-29 MEDICATIONS Medication Instructions Dosage Frequency Start Date End Date Duration Status Toprol XL 25 MG Orally Once a day 1 tablet 24h Oct, Not- Taking Sudafed 30 mg Orally every 6 hrs 1-2 tablet as needed 6h 18 Feb, 2016 Active Provera 2.5 MG Orally Once a day 2 tablets 24h Not-Taking Pseudoephedrine HCl 60 mg Orally every 6 hrs 1 tablet as needed 6h 24 Aug, 2016 0 days Active Metoprolol Tartrate 25 MG Orally Twice a day 1 tablet 12h Active Chlorhexidine Gluconate 0.12 % Mouth/Throat twice a day as directed 12h 7 days Active Estradiol 1 MG Orally Once a day 1 tablet 24h Active Estriol Not-Taking Aspirin Adult Low Dose Active Progesterone 100 MG Orally Once a day 2 capsules at bedtime 24h Active RESULTS No Results PROCEDURES Procedure Date Ordered Result Body Site INTRAORL-PERIAPICAL 1 FILM 11311 October 29, 2017 [facility]-TWO SURFACES PRIMARY/PERM October 29, 2017 [facility] Employee/Board adjustment October 29, 2017 Billing Notes on claim October 29, 2017 INSTRUCTIONS MEDICATIONS ADMINISTERED No Known Medications
--- OUTSIDE RECORDS SUMMARY | 2018-05-13 12:19 | XMS REPORT ---
Author Author TAMIKO Grimes [facility] Address [address] [place] [address] Care Team Providers Care Felt Dyeing Machine Tender Name Role Phone TAMIKO Grimes Unavailable PROBLEMS Type Condition ICD9-CM Code PXO88-TL Code Onset Dates Condition Status SNOMED Code Problem Need for prophylactic vaccination and inoculation, Influenza V04.81 Active 590423030 Problem ZOSTAVAX DX V05.8 Active 85048309 Problem Allergy, subsequent encounter T78.40XD Active 719209742 Problem Encounter for immunization Z23 Active 461164527 Problem Lateral epicondylitis of elbow 726.32 Active 009604224 Problem Dysuria 788.1 Active 23630172 Problem Pure hypercholesterolemia 272.0 Active 333035607 Problem Unspecified essential hypertension 401.9 Active 41947424 ALLERGIES No Information ENCOUNTERS Encounter Location Date Diagnosis [facility] [address] [address]79- 2363 Dec, [facility] [address] [id number] Nov, Dental examination Z01.20 [facility] [id number] [place] [address] 25950- 8774 Nov, Tooth sensitivity K03.89 [facility] [id number] [place] [address] [id number] Oct, Dental examination Z01.20 [facility] [address] [id number] September, Dental examination Z01.20 [facility] [id number] [place] [address] 57225- 7432 September, [facility] [address] 28349- 2546 September, [facility] [id number] [id number] Aug, Dental examination Z01.20 [facility] [address] [place] [address] [id number] Aug, Dental examination Z01.20 [facility] [address] [place] [address] [id number] Jul, Dental examination Z01.20 [facility] [id number] [place] [address] 882734- 0186 Jul, Dental examination Z01.20 [facility] [id number] [place] [address] 50950- 4496 Feb, Encounter for immunization Z23 [facility] [id number] [place] [address] 30539- 8308 Jan, Dental examination Z01.20 [facility] [id number] [place] [address] 19370- 6586 Dec, Dental examination Z01.20 [facility] [id number] [place] [address] 87102- 7746 Aug, Allergy, subsequent encounter T78.40XD [facility] [address] [place] [address] 51762- 3418 Jul, Dental examination Z01.20 [facility] [address] [place] [address] 912534- 7866 Feb, [facility] [address] [place] [address] 80356- 8175 Dec, Dental examination Z01.20 [facility] [address] [place] [address] 182931 -0876 Jul, [facility] [id number] [place] [address] 55297- 8041 Jul, Encounter for dental examination and cleaning without abnormal findings Z01.20 [facility] [id number], [place] [address]- 1129 15 Jul, 2015 Encounter for immunization Z23 [facility] [id number] [place] [address] 146086 -5286 03 Jul, 2015 Needlestick injury accident W27.3XXA [facility] [id number] [place] [address] 593366- 9845 Feb, Encounter for immunization Z23 [facility] [id number] [place] [address] [id number] Dec, Dental examination V72.2 [facility] [address] [id number] Nov, Dental examination V72.2 [facility] [id number] [place] [address] 091292- 8528 Oct, [facility] [id number] [place] [address] 59294- 4258 September, [facility] [id number] [place] [address] 31333- 4388 September, [facility] [id number] [place] [address] 90411- 4324 September, [facility] [address] [place] [address] 91140- 0404 Aug, [facility] [address] [place] [address] 23764- 4051 Aug, [facility] [address] [place] [address] 41692- 5156 May, [facility] [id number] [place] [address] 68469- 8353 May, [facility] [address] [place] [address] 989388- 0602 Mar, [facility] [id number] [place] [address] 18322- 5151 Mar, [facility] [place] [facility] [address] [id number] [place] [address]- 8470 Feb, [facility] [place] [facility] [address] [id number] [place] [address]- 9592 Feb, [facility] [place] [facility] [address] [id number] [place] [address]- 4907 Dec, [facility] [place] [facility] [address] [id number] [place] [address]- 4035 Dec, [facility] [place] [facility] [address] [id number] [place] [address]- 4186 Nov, [facility] [place] [facility] [address] [id number] [place] [address]- 5214 Nov, [facility] [place] [facility] [address] [id number] [place] [address]- 3007 Nov, [facility] [place] [facility] [address] [id number] [place] [address]- 0744 Nov, [facility] [place] [facility] [address] [id number] [place] [address]- 7493 Oct, [facility] [place] [facility] [address] [id number] [place] [address]- 6879 Oct, [facility] [place] [facility] [address] [id number] [place] [address]- 6231 Oct, [facility] [place] [facility] [address] [id number] [place] [address]- 5817 May, [facility] [place] [facility] [address] [id number] [place] [address]- 6398 May, [facility] [place] [facility] [address] [id number] [place] [address]- 2360 May, [facility] [place] [facility] [address] [id number] [place] [address]- 8163 May, [facility] [place] [facility] [address] [id number] [place] [address]- 9578 May, [facility] [address] [id number] [place] [address]- 3644 May, [facility] [place] [facility] [address] [id number] [place] [address]- 6676 Apr, [facility] [address] [id number] [place] [address]- 6446 Apr, [facility] [place] [facility] [address] [id number] [place] [address]- 2689 Feb, [facility] [address] [id number] [place] [address]- 9717 Feb, [facility] [address] [id number] [place] [address]- 8867 Apr, [facility] [place] [facility] [address] [id number] [place] [address]- 2329 Apr, [facility] [address] [id number] [place] [address]- 2813 Feb, [facility] [place] [facility] [address] [id number] [place] [address]- 7341 Feb, [facility] [address] [id number] [place] [address]- 7923 Feb, [facility] [place] [facility] [address] [id number] [place] [address]- 4594 Feb, [facility] [place] [facility] [address] [id number] [place] [address]- 4871 Oct, [facility] [place] [facility] [address] [id number] [place] [address]- 4406 Jul, [facility] [place] [facility] [address] [id number] [place] [address]- 4516 May, [facility] [place] [facility] [address] [id number] [place] [address]- 4456 May, [facility] [address] [facility] [id number], [place] [address]- 2546 May, [facility] [address] [address]- 2546 May, [facility] [address] [facility] [id number], [place] [address]- 2546 Mar, [facility] [address] [address]- 2546 Apr, [facility] [address] [facility] [id number], [place] [address]- 2526 Feb, [facility] [address] [facility] [id number], [place] [address]- 6986 Feb, IMMUNIZATIONS No Known Immunizations SOCIAL HISTORY Never Assessed REASON FOR VISIT facial pain PLAN OF CARE VITAL SIGNS MEDICATIONS Medication Instructions Dosage Frequency Start Date End Date Duration Status Cefdinir 300 MG Orally every 12 hrs 1 capsule 12h September, September, 10 day(s) Active Sudafed 30 mg Orally every 6 hrs 1-2 tablet as needed 6h Feb, Active RESULTS No Results PROCEDURES No Known procedures INSTRUCTIONS MEDICATIONS ADMINISTERED No Known Medications
--- OUTSIDE RECORDS SUMMARY | 2018-05-13 12:19 | XMS REPORT ---
Author Author TAMIKO Grimes [facility] Address [address] [place] [address] Care Team Providers Care Mainframe Developer Name Role Phone TAMIKO Grimes Unavailable PROBLEMS Type Condition ICD9-CM Code [id number] Code Onset Dates Condition Status SNOMED Code Problem Need for prophylactic vaccination and inoculation, Influenza V04.81 Active 611707858 Problem ZOSTAVAX DX V05.8 Active 72411922 Problem Allergy, subsequent encounter T78.40XD Active 587821810 Problem Encounter for immunization Z23 Active 270767881 Problem Lateral epicondylitis of elbow 726.32 Active 729989186 Problem Dysuria 788.1 Active 38088423 Problem Pure hypercholesterolemia 272.0 Active 555379143 Problem Unspecified essential hypertension 401.9 Active 83255529 ALLERGIES No Information ENCOUNTERS Encounter Location Date Diagnosis [facility] [address] [address] Dec, [facility] [address] [id number] Nov, Dental examination Z01.20 [facility] [id number] [place] [address] 00067- 0469 Nov, Tooth sensitivity K03.89 [facility] [id number] [place] [address] [id number] Oct, Dental examination Z01.20 [facility] [address] [id number] September, Dental examination Z01.20 [facility] [id number] [place] [address] 84413- 5660 September, [facility] [address] [address]- [address] September, [facility] [address] [id number] [id number] Aug, Dental examination Z01.20 [facility] [address] [place] [address] [id number] Aug, Dental examination Z01.20 [facility] [address] [place] [address] [id number] Jul, Dental examination Z01.20 [facility] [id number] [place] [address] 747491- 7176 Jul, Dental examination Z01.20 [facility] [id number] [place] [address] 77106- 0426 Feb, Encounter for immunization Z23 [facility] [id number] [place] [address] 02386- 4961 Jan, Dental examination Z01.20 [facility] [id number] [place] [address] 83611- 3166 Dec, Dental examination Z01.20 [facility] [id number] [place] [address] 81574- 5334 Aug, Allergy, subsequent encounter T78.40XD [facility] [address] [place] [address] 20844- 9964 Jul, Dental examination Z01.20 [facility] [address] [place] [address] 242005- 5826 Feb, [facility] [address] [place] [address] 62767- 4511 Dec, Dental examination Z01.20 [facility] [address] [place] [address] 276160 -2706 Jul, [facility] [id number] [place] [address] 99535- 6166 Jul, Encounter for dental examination and cleaning without abnormal findings Z01.20 [facility] [address] [id number] [address] 4085 15 Jul, 2015 Encounter for immunization Z23 [facility] [id number] [place] [address] 229655 -5086 03 Jul, 2015 Needlestick injury accident W27.3XXA [facility] [id number] [place] [address] 232658- 5736 Feb, Encounter for immunization Z23 [facility] [id number] [place] [address] [id number] Dec, Dental examination V72.2 [facility] [address] [id number] Nov, Dental examination V72.2 [facility] [id number] [place] [address] 295028- 2504 Oct, [facility] [id number] [place] [address] 84821- 5894 September, [facility] [id number] [place] [address] 84357- 4280 September, [facility] [id number] [place] [address] 93124- 1661 September, [facility] [id number] [place] [address] 77848- 9563 Aug, [facility] [id number] [place] [address] 04054- 4986 Aug, [facility] [id number] [place] [address] 97276- 8097 May, [facility] [id number] [place] [address] 94817- 8027 May, [facility] [id number] [place] [address] 477302- 5326 Mar, [facility] [id number] [place] [address] 46594- 4118 Mar, [facility] [place] [facility] [address] [id number] [place] [address]- 1334 Feb, [facility] [place] [facility] [address] [id number] [place] [address]- 1793 Feb, [facility] [place] [facility] [address] [id number] [place] [address]- 1066 Dec, [facility] [place] [facility] [address] [id number] [place] [address]- 4893 Dec, [facility] [place] [facility] [address] [id number] [place] [address]- 7895 Nov, [facility] [place] [facility] [address] [id number] [place] [address]- 7514 Nov, [facility] [place] [facility] [address] [id number] [place] [address]- 5965 Nov, [facility] [place] [facility] [address] [id number] [place] [address]- 3564 Nov, [facility] [place] [facility] [address] [id number] [place] [address]- 2606 Oct, [facility] [place] [facility] [address] [id number] [place] [address]- 0225 Oct, [facility] [place] [facility] [address] [id number] [place] [address]- 8211 Oct, [facility] [place] [facility] [address] [id number] [place] [address]- 0906 May, [facility] [place] [facility] [address] [id number] [place] [address]- 3519 May, [facility] [place] [facility] [address] [id number] [place] [address]- 7948 May, [facility] [place] [facility] [address] [id number] [place] [address]- 9022 May, [facility] [place] [facility] [address] [id number] [place] [address]- 1001 May, [facility] [address] [id number] [place] [address]- 2748 May, [facility] [place] [facility] [address] [id number] [place] [address]- 2332 Apr, [facility] [address] [id number] [place] [address]- 0540 Apr, [facility] [place] [facility] [address] [id number] [place] [address]- 6238 Feb, [facility] [address] [id number] [place] [address]- 8684 Feb, [facility] [address] [id number] [place] [address]- 9840 Apr, [facility] [place] [facility] [address] [id number] [place] [address]- 1674 Apr, [facility] [address] [id number] [place] [address]- 5106 Feb, [facility] [place] [facility] [address] [id number] [place] [address]- 4315 Feb, [facility] [address] [id number] [place] [address]- 4151 Feb, [facility] [place] [facility] [address] [id number] [place] [address]- 4624 Feb, [facility] [place] [facility] [address] [id number] [place] [address]- 3064 Oct, [facility] [place] [facility] [address] [id number] [place] [address]- 6776 Jul, [facility] [place] [facility] [address] [id number] [place] [address]- 1716 May, [facility] [place] [facility] [address] [id number] [place] [address]- 7286 May, [facility] [address] [facility] [id number] [address]- 9996 May, [facility] [address] [address]- 2546 May, [facility] [address] [facility] [id number] [address]- 2546 Mar, [facility] [address] [id number] [address]- 6806 Apr, [facility] [address] [facility] [id number] [address]- 1056 Feb, [facility] [address] [facility] [id number] [address]- 2446 Feb, IMMUNIZATIONS No Known Immunizations SOCIAL HISTORY Never Assessed REASON FOR VISIT sinus issue PLAN OF CARE VITAL SIGNS MEDICATIONS Medication Instructions Dosage Frequency Start Date End Date Duration Status Bactrim DS 800-160 MG Orally Twice a day 1 tablet 12h September,September 10 day(s) Active RESULTS No Results PROCEDURES No Known procedures INSTRUCTIONS MEDICATIONS ADMINISTERED No Known Medications
--- OUTSIDE RECORDS SUMMARY | 2018-05-13 12:19 | XMS REPORT ---
Author Author KOFI FAJARDO Organization [facility] Address [address] [place] [address] Care Team Providers Care Mica Paster Name Role Phone KOFI FAJARDO Unavailable PROBLEMS Type Condition ICD9-CM Code [id number] Code Onset Dates Condition Status SNOMED Code Problem Need for prophylactic vaccination and inoculation, Influenza V04.81 Active 172851613 Problem ZOSTAVAX DX V05.8 Active 04017367 Problem Allergy, subsequent encounter T78.40XD Active 813712400 Problem Encounter for immunization Z23 Active 839351613 Problem Lateral epicondylitis of elbow 726.32 Active 669423816 Problem Dysuria 788.1 Active 26013075 Problem Pure hypercholesterolemia 272.0 Active 348657013 Problem Unspecified essential hypertension 401.9 Active 74397379 ALLERGIES No Known Allergies ENCOUNTERS Encounter Location Date Diagnosis [facility] [address] [address]- [address]95 Dec, [facility] [id number] [place] [address] [id number] Nov, Dental examination Z01.20 [facility] [address] [id number] [place] [address] 80921- 9071 Nov, Tooth sensitivity K03.89 [facility] [address] [id number] [place] [address] [id number] Oct, Dental examination Z01.20 [facility] [address] [id number] September, Dental examination Z01.20 [facility] [id number] [place] [address] 02886- 7258 September, [facility] [address] [address]- 9718 September, [facility] [address] [facility] [id number] [id number] Aug, Dental examination Z01.20 [facility] [address] [id number] Aug, Dental examination Z01.20 [facility] [address] [id number] Jul, Dental examination Z01.20 [facility] [id number] [place] [address] 488622- 6106 Jul, Dental examination Z01.20 [facility] [id number] [place] [address] 97392- 3216 Feb, Encounter for immunization Z23 [facility] [id number] [place] [address] 86939- 9031 Jan, Dental examination Z01.20 [facility] [address] [place] [address] 54375- 7436 Dec, Dental examination Z01.20 [facility] [id number] [place] [address] 89002- 8972 Aug, Allergy, subsequent encounter T78.40XD [facility] [address] [place] [address] 24213- 9393 Jul, Dental examination Z01.20 [facility] [address] [place] [address] 16830- 1976 Feb, [facility] [address] [place] [address] 43477- 6261 Dec, Dental examination Z01.20 [facility] [address] [place] [address] [phone] -[phone] Jul, [facility] [address] [place] [address] 15171- 3573 15 Jul, 2015 Encounter for dental examination and cleaning without abnormal findings Z01.20 [facility] [address] [address]- 5777 15 Jul, 2015 Encounter for immunization Z23 [facility] [id number] [place] [address] 86793 -0946 03 Jul, 2015 Needlestick injury accident W27.3XXA [facility] [id number] [place] [address] 78239- 1925 Feb, Encounter for immunization Z23 [facility] [id number] [place] [address] [id number] Dec, Dental examination V72.2 [facility] [address] [id number] Nov, Dental examination V72.2 [facility] [id number] [place] [address] 26708- 4625 Oct, [facility] [id number] [place] [address] 97842- 7407 September, [facility] [id number] [place] [address] 36584- 4159 September, [facility] [id number] [place] [address] 58026- 2394 September, [facility] [address] [place] [address] 34227- 7027 Aug, [facility] [address] [place] [address] 97501- 0352 Aug, [facility] [address] [place] [address] 86227- 0054 May, [facility] [id number] [place] [address] 63706- 2346 May, [facility] [address] [place] [address] 08082- 7972 Mar, [facility] [id number] [place] [address] 27838- 7746 Mar, [facility] [place] [facility] [address] [id number] [place] [address]- 1277 Feb, [facility] [place] [facility] [address] [id number] [place] [address]- 9946 Feb, [facility] [place] [facility] [address] [id number] [place] [address]- 1876 Dec, [facility] [place] [facility] [address] [id number] [place] [address]- 1805 Dec, [facility] [place] [facility] [address] [id number] [place] [address]- 2146 Nov, [facility] [place] [facility] [address] [id number] [place] [address]- 1749 Nov, [facility] [place] [facility] [address] [id number] [place] [address]- 2962 Nov, [facility] [place] [facility] [address] [id number] [place] [address]- 5929 Nov, [facility] [place] [facility] [address] [id number] [place] [address]- 6410 Oct, [facility] [place] [facility] [address] [id number] [place] [address]- 7129 Oct, [facility] [place] [facility] [address] [id number] [place] [address]- 8232 Oct, [facility] [place] [facility] [address] [id number], [place] [address]- 3369 May, [facility] [place] [facility] [address] [id number] [place] [address]- 9243 May, [facility] [place] [facility] [address] [id number] [place] [address]- 2368 May, [facility] [place] [facility] [address] [id number] [place] [address]- 1974 May, [facility] [place] [facility] [address] [id number] [place] [address]- 6790 May, [facility] [address] [id number] [place] [address]- 1822 May, [facility] [address] [id number] [place] [address]- 7551 Apr, [facility] [address] [id number] [place] [address]- 7974 Apr, [facility] [place] [facility] [address] [id number] [place] [address]- 1403 Feb, [facility] [address] [id number] [place] [address]- 7426 Feb, [facility] [address] [id number] [place] [address]- 3155 Apr, [facility] [address] [id number] [place] [address]- 3568 Apr, [facility] [address] [id number] [place] [address]- 4733 Feb, [facility] [address] [id number] [place] [address]- 9307 Feb, [facility] [address] [id number] [place] [address]- 8561 Feb, [facility] [place] [facility] [address] [id number] [place] [address]- 9705 Feb, [facility] [address] [id number] [place] [address]- 3203 Oct, [facility] [place] [facility] [address] [id number] [place] [address]- 7873 Jul, [facility] [place] [facility] [address] [id number] [place] [address]- 8194 May, [facility] [place] [facility] [address] [id number] [place] [address]- 4085 May, [facility] [address] [facility] [id number], [place] [address]- 4116 May, [facility] [address] [facility] [id number], [place] [address]- 9986 May, [facility] [address] [facility] [id number], [place] [address]- 9269 Mar, [facility] [address] [facility] [id number], [place] [address]- 8546 Apr, [facility] [address] [facility] [id number], [place] [address]- 1258 Feb, [facility] [address] [facility] [id number][place]- 5590 Feb, IMMUNIZATIONS No Known Immunizations SOCIAL HISTORY Never Assessed REASON FOR VISIT crown prep PLAN OF CARE Activity Details Follow Up 1 week Reason:seat crown #19 VITAL SIGNS Blood pressure systolic 122 mmHg 2017-09-13 Blood pressure diastolic 82 mmHg 2017-09-13 MEDICATIONS Medication Instructions Dosage Frequency Start Date End Date Duration Status Metoprolol Tartrate 25 MG Orally Twice a day 1 tablet 12h Active Estradiol 1 MG Orally Once a day 1 tablet 24h Active Aspirin Adult Low Dose Active Provera 2.5 MG Orally Once a day 2 tablets 24h Not-Taking Progesterone 100 MG Orally Once a day 2 capsules at bedtime 24h Active Estriol Not-Taking Toprol XL 25 MG Orally Once a day 1 tablet 24h 08 Oct, 2014 Not- Taking Sudafed 60 mg Orally every 6 hrs 1 tablet as needed 6h 18 Feb, 2016 Active Pseudoephedrine HCl 60 mg Orally every 6 hrs 1 tablet as needed 6h 24 Aug, 2016 0 days Active Chlorhexidine Gluconate 0.12 % Mouth/Throat twice a day as directed 12h 7 days Active RESULTS No Results PROCEDURES Procedure Date Ordered Result Body Site CROWN-PORCELN FUSD PREDOM BASE METL September 13, 2017 Billing Notes on claim September 13, 2017 INSTRUCTIONS MEDICATIONS ADMINISTERED No Known Medications
--- OUTSIDE RECORDS SUMMARY | 2018-05-13 12:19 | XMS REPORT ---
Author Author KOFI FAJARDO Organization [facility] Address [address] [place] [address] Care Team Providers Care Administrative Law Judge Name Role Phone KOFI FAJARDO Unavailable PROBLEMS Type Condition ICD9-CM Code [id number] Code Onset Dates Condition Status SNOMED Code Problem Need for prophylactic vaccination and inoculation, Influenza V04.81 Active 723272160 Problem ZOSTAVAX DX V05.8 Active 47957558 Problem Allergy, subsequent encounter T78.40XD Active 942663095 Problem Encounter for immunization Z23 Active 516678235 Problem Lateral epicondylitis of elbow 726.32 Active 599621948 Problem Dysuria 788.1 Active 10436041 Problem Pure hypercholesterolemia 272.0 Active 806665999 Problem Unspecified essential hypertension 401.9 Active 41040864 ALLERGIES No Information ENCOUNTERS Encounter Location Date Diagnosis [facility] [id number] [place] [address] [id number] Nov, Dental examination Z01.20 [facility] [id number] [place] [address] 86788- 3530 Nov, Tooth sensitivity K03.89 [facility] [id number] [place] [address] [id number] Oct, Dental examination Z01.20 [facility] [id number] [place] [address] [id number] September, Dental examination Z01.20 [facility] [id number] [place] [address] [phone]- 1041 September, [facility] [id number] [place] [address] 10650- 3175 September, [facility] [id number] [place] [address] [id number] Aug, Dental examination Z01.20 [facility] [address] [phone] Aug, Dental examination Z01.20 [facility] [address] [place] [address] [id number] Jul, Dental examination Z01.20 [facility] [id number] [place] [address] 00055- [phone] Jul, Dental examination Z01.20 [facility] [id number] [place] [address] 82734- [phone] Feb, Encounter for immunization Z23 [facility] [id number] [place] [address] 27695- 5086 Jan, Dental examination Z01.20 [facility] [id number] [place] [address] [phone]- [phone] Dec, Dental examination Z01.20 [facility] [id number] [place] [address] 45240- 3906 Aug, Allergy, subsequent encounter T78.40XD [facility] [id number] [place] [address] 76456- [phone] Jul, Dental examination Z01.20 [facility] [address] [place] [address] 51367- 5696 Feb, [facility] [id number] [place] [address] 41796- [phone] Dec, Dental examination Z01.20 [facility] [address] [place] [address] [phone] -[phone] Jul, [facility] [id number] [place] [address] [phone]- [phone] Jul, Encounter for dental examination and cleaning without abnormal findings Z01.20 [facility] [id number] [place] [address] 72653- [phone] Jul, Encounter for immunization Z23 [facility] [id number] [address] Jul, 2015 Needlestick injury accident W27.3XXA [facility] [id number] [address] Feb, Encounter for immunization Z23 [facility] [id number] [place] [address] [id number] Dec, Dental examination V72.2 [facility] [id number] [place] [address] [id number] Nov, Dental examination V72.2 [facility] [id number] [place] [address] [phone] Oct, [facility] [id number] [place] [address] [phone]- [phone] September, [facility] [id number] [place] [address] [phone]- 2278 September, [facility] [address] [place] [address] [phone]- [phone] September, [facility] [address] [place] [address] 44501- 9221 Aug, [facility] [address] [place] [address] 48482- 4859 Aug, [facility] [address] [place] [address] 98486- 7305 May, [facility] [id number] [address] 3[address] May, [facility] [id number] [place] [address] [phone] Mar, [facility] [id number] [address]70 Mar, [facility] [address] [place] [address] 84463- 0647 Feb, [facility] [place] [facility] [address] [id number] [place] [address] 49[address] Feb, [facility] [place] [facility] [address] [id number] [place] [address]- 2693 Dec, [facility] [place] [facility] [address] [id number] [place] [address]- 7236 Dec, [facility] [place] [facility] [address] [id number] [place] [address]- 2987 Nov, [facility] [place] [facility] [address] [id number] [place] [address]- 8570 Nov, [facility] [place] [facility] [address] [id number] [place] [address]- 7909 Nov, [facility] [place] [facility] [address] [id number] [place] [address]- 8177 Nov, [facility] [place] [facility] [address] [id number] [place] [address]- 3503 Oct, [facility] [place] [facility] [address] [id number] [place] [address]- 7604 Oct, [facility] [place] [facility] [address] [id number] [place] [address]- 3386 Oct, [facility] [place] [facility] [address] [id number] [place] [address]- 4696 May, [facility] [place] [facility] [address] [id number], [place] [address]84 May, [facility] [place] [facility] [address] [id number] [place] [address]- 6263 May, [facility] [place] [facility] [address] [id number] [place] [address]- 5698 May, [facility] [place] [facility] [address] [id number] [place] [address]- 0529 May, [facility] [place] [facility] [address] [id number] [place] [address]- 4043 May, [facility] [address] [id number] [place] [address]- 5117 Apr, [facility] [place] [facility] [address] [id number] [place] [address]- 3049 Apr, [facility] [address] [id number] [place] [address]- 3331 Feb, [facility] [place] [facility] [address] [id number] [place] [address]- 2368 Feb, [facility] [address] [id number] [place] [address]- 1548 Apr, [facility] [address] [id number] [place] [address]- 0506 Apr, [facility] [address] [id number] [place] [address]- 4241 Feb, [facility] [address] [id number] [place] [address]- 1860 Feb, [facility] [address] [id number] [place] [address]- 3214 Feb, [facility] [address] [id number] [place] [address]- 7262 Feb, [facility] [place] [facility] [address] [id number] [place] [address]- 9950 Oct, [facility] [place] [facility] [address] [id number] [place] [address]- 5424 Jul, [facility] [place] [facility] [address] [id number] [place] [address]- 0269 May, [facility] [place] [facility] [address] [id number] [place] [address]- 9297 May, [facility] [place] [facility] [address] [id number] [place] [address]- 2651 May, [facility] [address] [facility] [id number] [address] 2546 May, [facility] [id number] [address] 2546 Mar, [facility] [id number] [address] 2546 Apr, [facility] [id number], [place] [address] 2546 Feb, [facility] [address] [facility] [id number] [address] 5696 Feb, IMMUNIZATIONS No Known Immunizations SOCIAL HISTORY Never Assessed REASON FOR VISIT crown seat PLAN OF CARE Activity Details Follow Up prn Reason:Hygiene VITAL SIGNS MEDICATIONS Unknown Medications RESULTS No Results PROCEDURES Procedure Date Ordered Result Body Site Dental no charge October 22, 2017 INSTRUCTIONS MEDICATIONS ADMINISTERED No Known Medications
--- OUTSIDE RECORDS SUMMARY | 2018-05-13 12:20 | XMS REPORT ---
Author Author PATITO LITTLEJOHN [facility] eClinicalWorks Address Unknown Phone Unavailable Care Team Providers Care Genetic Counselor Name Role Phone PATITO LITTLEJOHN CP Unavailable Allergies No Known Allergies Problems Problem Type Condition Code Onset Dates Condition Status Problem Need for prophylactic vaccination and inoculation, Influenza V04.81 Active Problem ZOSTAVAX DX V05.8 Active Problem Encounter for immunization Z23 Active Problem Dysuria 788.1 Active Problem Lateral epicondylitis of elbow 726.32 Active Problem Pure hypercholesterolemia 272.0 Active Problem Unspecified essential hypertension 401.9 Active Medications Medication Code System Code Instructions Start Date End Date Status Dosage Sudafed [facility] [id number] 60 mg Orally every 6 hrs 2016 1 tablet as needed Results No Known Results Summary Purpose eClinicalWorks Submission
--- OUTSIDE RECORDS SUMMARY | 2018-05-13 12:20 | XMS REPORT | Continuity of Care Document ---
Author Author [facility] Address Unknown Phone Unavailable Allergies Active Description Code Type Severity Reaction Onset Reported/Identified Relationship to Patient Clinical Status Yes No Known Drug Allergies [id number] Drug Allergy Unknown N/A 04/16/2010 Yes Sulfa (Sulfonamide Antibiotics) [id number] Drug Allergy Mild ITCHING 2017 Medications There is no data. Problems Date Dx Coded Attending Type Code Diagnosis Diagnosed By 12/29/2007 919.6 FOREIGN BODY SKIN SUPERFICIAL (SPLINTER) ETC UNSPEC 12/29/2007 919.6 FOREIGN BODY SKIN SUPERFICIAL (SPLINTER) ETC UNSPEC 12/29/2007 SAMMIE MCINTYRE DDS 919.6 FOREIGN BODY SKIN SUPERFICIAL (SPLINTER) ETC UNSPEC 12/29/2007 BREE CHRISTENSEN DO 919.6 FOREIGN BODY SKIN SUPERFICIAL (SPLINTER) ETC UNSPEC 12/29/2007 BREE CHRISTENSEN DO K 919.6 FOREIGN BODY SKIN SUPERFICIAL (SPLINTER) ETC UNSPEC 12/29/2007 KATHERYN MARINELLI DDS 919.6 FOREIGN BODY SKIN SUPERFICIAL (SPLINTER) ETC UNSPEC 12/29/2007 BREE CHRISTENSEN DO K 919.6 FOREIGN BODY SKIN SUPERFICIAL (SPLINTER) ETC UNSPEC 12/29/2007 CAITLYN SHARIF DDS 919.6 FOREIGN BODY SKIN SUPERFICIAL (SPLINTER) ETC UNSPEC 11/14/2008 959.9 OTHER AND UNSPECIFIED INJURY TO UNSPECIFIED SITE 11/14/2008 959.9 OTHER AND UNSPECIFIED INJURY TO UNSPECIFIED SITE 11/14/2008 SAMMIE MCINTYRE DDS 959.9 OTHER AND UNSPECIFIED INJURY TO UNSPECIFIED SITE 11/14/2008 BREE CHRISTENSEN DO 959.9 OTHER AND UNSPECIFIED INJURY TO UNSPECIFIED SITE 11/14/2008 BREE CHRISTENSEN DO K 959.9 OTHER AND UNSPECIFIED INJURY TO UNSPECIFIED SITE 11/14/2008 KATHERYN MARINELLI DDS 959.9 OTHER AND UNSPECIFIED INJURY TO UNSPECIFIED SITE 11/14/2008 FERMIN DOBREE K 959.9 OTHER AND UNSPECIFIED INJURY TO UNSPECIFIED SITE 11/14/2008 KOLE DONALDS, CAITLYN 959.9 OTHER AND UNSPECIFIED INJURY TO UNSPECIFIED SITE 07/15/2010 V74.1 SCREENING EXAMINATION FOR PULMONARY TUBERCULOSIS 07/15/2010 V74.1 SCREENING EXAMINATION FOR PULMONARY TUBERCULOSIS 07/15/2010 FRANCISCO JAVIER DDS, SAMMIE F V74.1 SCREENING EXAMINATION FOR PULMONARY TUBERCULOSIS 07/15/2010 CHRISTENSEN DO, BREE K V74.1 SCREENING EXAMINATION FOR PULMONARY TUBERCULOSIS 07/15/2010 CHRISTENSEN DO, BREE K V74.1 SCREENING EXAMINATION FOR PULMONARY TUBERCULOSIS 07/15/2010 ISIS DDS, KATHERYN Aguilar V74.1 SCREENING EXAMINATION FOR PULMONARY TUBERCULOSIS 07/15/2010 CHRISTENSEN DO BREE K V74.1 SCREENING EXAMINATION FOR PULMONARY TUBERCULOSIS 07/15/2010 SHARIF DDS, CAITLYN V74.1 SCREENING EXAMINATION FOR PULMONARY TUBERCULOSIS 06/18/2011 788.1 DYSURIA 06/18/2011 788.1 DYSURIA 06/18/2011 FRANCISCO JAVIER DDS, SAMMIE F 788.1 DYSURIA 06/18/2011 CHRISTENSEN DO, BREE K 788.1 DYSURIA 06/18/2011 CHRISTENSEN DO, BREE K 788.1 DYSURIA 06/18/2011 ISIS DNOALDS, KATHERYN Aguilar 788.1 DYSURIA 06/18/2011 CHRISTENSEN DO, BREE K 788.1 DYSURIA 06/18/2011 KOLE DONALDS, CAITLYN 788.1 DYSURIA 05/09/2012 V05.8 ZOSTAVAX DX 05/09/2012 FRANCISCO JAVIER DDS, SAMMIE Doss V05.8 ZOSTAVAX DX 05/09/2012 CHRISTENSEN DO, BREE K V05.8 ZOSTAVAX DX 05/09/2012 CHRISTENSEN DO, BREE K V05.8 ZOSTAVAX DX 05/09/2012 ISIS DONALDSKATHERYN V05.8 ZOSTAVAX DX 05/09/2012 CHRISTENSEN DO, BREE K V05.8 ZOSTAVAX DX 05/09/2012 KOLE DONALDSCAITLYN V05.8 ZOSTAVAX DX 03/07/2013 CHRISTENSEN DO, BREE K V04.81 FLU SHOT 03/07/2013 CHRISTENSEN DO, BREE K V04.81 FLU SHOT 03/07/2013 WHITE DDS, KATHERYN J V04.81 FLU SHOT 03/07/2013 CHRISTENSEN DO, BREE K V04.81 FLU SHOT 03/07/2013 SHARIF DDS, CAITLYN V04.81 FLU SHOT 05/09/2013 CHRISTENSEN DO, BREE K 272.0 HYPERCHOLESTEROLEMIA 05/09/2013 CHRISTENSEN DO, BREE K 401.9 HYPERTENSION, UNSPECIFIED ESSENTIAL 05/09/2013 WHITE DDS, KATHERYN J 272.0 HYPERCHOLESTEROLEMIA 05/09/2013 WHITE DDS, KATHERYN J 401.9 HYPERTENSION, UNSPECIFIED ESSENTIAL 05/09/2013 CHRISTENSEN DO, BREE K 272.0 HYPERCHOLESTEROLEMIA 05/09/2013 CHRISTENSEN DO, BREE K 401.9 HYPERTENSION, UNSPECIFIED ESSENTIAL 05/09/2013 SHARIF DDS, CAITLYN 272.0 HYPERCHOLESTEROLEMIA 05/09/2013 SHARIF DDS, CAITLYN 401.9 HYPERTENSION, UNSPECIFIED ESSENTIAL 06/22/2013 CHRISTENSEN DO, BREE K 726.32 LATERAL EPICONDYLITIS [place] REGION 06/22/2013 WHITE DDS, KATHERYN J 726.32 LATERAL EPICONDYLITIS [place] REGION 06/22/2013 CHRISTENSEN DO, BREE K 726.32 LATERAL EPICONDYLITIS [place] REGION 06/22/2013 SHARIF DDS, CAITLYN 726.32 LATERAL EPICONDYLITIS ELB[place] REGION 05/06/2018 HUMPHREY CHAPA MD Ot D64.9 ANEMIA, UNSPECIFIED 05/06/2018 HUMPHREY CHAPA MD Ot N95.0 POSTMENOPAUSAL BLEEDING 05/06/2018 HUMPHREY CHAPA MD Ot Z01.812 ENCOUNTER FOR PREPROCEDURAL LABORATORY E 05/06/2018 HUMPHREY CHAPA MD Ot Z11.2 ENCOUNTER FOR SCREENING FOR OTHER BACTER 05/10/2018 HUMPHREY CHAPA MD Ot D64.9 ANEMIA, UNSPECIFIED 05/10/2018 HUMPHREY CHAPA MD Ot N95.0 POSTMENOPAUSAL BLEEDING 05/10/2018 HUMPHREY CHAPA MD Ot Z01.812 ENCOUNTER FOR PREPROCEDURAL LABORATORY E 05/10/2018 HUMPHREY CHAPA MD Ot Z11.2 ENCOUNTER FOR SCREENING FOR OTHER BACTER 05/13/2018 SAMMI MCCORMICK, HUMPHREY Kannan Ot Z12.31 ENCNTR SCREEN MAMMOGRAM FOR MALIGNANT NE Procedures Code Description Performed By Performed On INJ TENDON SHEATH/LIGAMENT 06/22/2013 Latisha Johnny Del Valle 06/30/2013 10141 TB TEST INTRADERMAL 11/06/2013 Results Test Result Range Complete blood count (CBC) with automated white blood cell (WBC) differential - 05/06/18 10:55 Blood leukocytes automated count (number/volume) 6.6 10*3/uL 4.3-11.0 Blood erythrocytes automated count (number/volume) 4.16 10*6/uL 4.35-5.85 Venous blood hemoglobin measurement (mass/volume) 13.3 g/dL 11.5-16.0 Blood hematocrit (volume fraction) 40 % 35-52 Automated erythrocyte mean corpuscular volume 96 [foz_us] 80-99 Automated erythrocyte mean corpuscular hemoglobin (mass per erythrocyte) 32 pg 25-34 Automated erythrocyte mean corpuscular hemoglobin concentration measurement ( mass/volume) 33 g/dL 32-36 Automated erythrocyte distribution width ratio 12.1 % 10.0-14.5 Automated blood platelet count (count/volume) 257 10*3/uL 130-400 Automated blood platelet mean volume measurement 9.3 [foz_us] 7.4-10.4 Automated blood neutrophils/100 leukocytes 48 % 42-75 Automated blood lymphocytes/100 leukocytes 41 % 12-44 Blood monocytes/100 leukocytes 7 % 0-12 Automated blood eosinophils/100 leukocytes 4 % 0-10 Automated blood basophils/100 leukocytes 1 % 0-10 Blood neutrophils automated count (number/volume) 3.2 10*3 1.8-7.8 Blood lymphocytes automated count (number/volume) 2.7 10*3 1.0-4.0 Blood monocytes automated count (number/volume) 0.5 10*3 0.0-1.0 Automated eosinophil count 0.3 10*3/uL 0.0-0.3 Automated blood basophil count (count/volume) 0.0 10*3/uL 0.0-0.1 Blood type T Indirect antibody screen panel - 05/06/18 10:55 ABO+Rh group OP NRG Transfusion band number TNP NRG Blood group antibody screen NEGATIVE NRG Methicillin resistant Staphylococcus aureus (MRSA) screening culture - 10:55 Methicillin resistant Staphylococcus aureus (MRSA) screening culture NEG NRG Encounters ACCT No. Visit Date/Time Discharge Status Pt. Type Provider Facility Loc./Unit Complaint [id number] 06/01/2014 07:49:00 06/01/2014 23:59:59 CLS Outpatient SHARIF GAYLECAITLYN [id number] 03/15/2014 10:00:00 03/15/2014 23:59:59 CLS Outpatient BREE CHRISTENSEN DO [id number] 11/22/2013 16:01:00 11/22/2013 23:59:59 CLS Outpatient ISIS GAYLEKATHERYN Jeff [id number] 06/22/2013 12:58:00 06/22/2013 23:59:59 CLS Outpatient BREE CHRISTENSEN DO [id number] 03/07/2013 10:55:00 03/07/2013 23:59:59 CLS Outpatient BREE CHRISTENSEN DO [id number] 07/22/2012 07:53:00 07/22/2012 23:59:59 CLS Outpatient FRANCISCO JAVIER DDSSAMMIE [id number] 05/09/2012 09:28:00 05/09/2012 23:59:59 CLS Outpatient [id number] 06/18/2011 10:36:00 06/18/2011 23:59:59 CLS Outpatient [id number] 12/22/2017 14:45:00 12/22/2017 23:59:59 CLS Outpatient REGI ARREOLA APRN [facility] [id number] 08/25/2016 16:02:00 08/25/2016 23:59:00 DIS Outpatient HUMPHREY CHAPA [id number] 05/06/2018 10:26:00 05/06/2018 12:17:00 DIS Outpatient HUMPHREY CHAPA MD [facility] PREOP POST MENOPAUSAL BLEEDING [id number] 04/27/2018 15:33:00 04/27/2018 23:59:59 CLS Outpatient HUMPHREY CHAPA MD [facility] RAD ROUTINE [id number] 05/13/2018 12:10:00 ACT Outpatient HUMPHREY CHAPA MD [facility] SDC POST MENOPAUSAL BLEEDING, PELVIC MASS
--- OUTSIDE RECORDS SUMMARY | 2018-05-13 12:20 | XMS REPORT ---
Author Author KOFI FAJARDO Organization [facility] Address [address] [place] [address] Care Team Providers Care Trench Digger Name Role Phone KOFI FAJARDO Unavailable PROBLEMS Type Condition ICD9-CM Code OZU96-RY Code Onset Dates Condition Status SNOMED Code Problem Need for prophylactic vaccination and inoculation, Influenza V04.81 Active 370540591 Problem ZOSTAVAX DX V05.8 Active 55687749 Problem Allergy, subsequent encounter T78.40XD Active 293472080 Problem Encounter for immunization Z23 Active 916851773 Problem Lateral epicondylitis of elbow 726.32 Active 513517426 Problem Dysuria 788.1 Active 26382647 Problem Pure hypercholesterolemia 272.0 Active 941838141 Problem Unspecified essential hypertension 401.9 Active 84135968 ALLERGIES No Known Allergies ENCOUNTERS Encounter Location Date Diagnosis [facility] [address] [address] Dec, [facility] [id number] [place] [address] [id number] Nov, Dental examination Z01.20 [facility] [id number] [place] [address] 02867- 1221 Nov, Tooth sensitivity K03.89 [facility] [id number] [place] [address] [id number] Oct, Dental examination Z01.20 [facility] [address] [id number] September, Dental examination Z01.20 [facility] [id number] [place] [address] 03693- 5696 September, [facility] [address] [address]- [address]166 September, [facility] [address] [facility] [id number] [id number] Aug, Dental examination Z01.20 [facility] [address] [id number] Aug, Dental examination Z01.20 [facility] [address] [id number] Jul, Dental examination Z01.20 [facility] [id number] [place] [address] 700498- 6376 Jul, Dental examination Z01.20 [facility] [id number] [place] [address] 52253- 8826 Feb, Encounter for immunization Z23 [facility] [id number] [place] [address] 04165- 7778 Jan, Dental examination Z01.20 [facility] [id number] [place] [address] 24914- 9366 Dec, Dental examination Z01.20 [facility] [id number] [place] [address] 60323- 4334 Aug, Allergy, subsequent encounter T78.40XD [facility] [id number] [place] [address] 11842- 8243 Jul, Dental examination Z01.20 [facility] [id number] [place] [address] 61257- 3236 Feb, [facility] [id number] [place] [address] 73557- 3274 Dec, Dental examination Z01.20 [facility] [address] [place] [address] [id number] -1896 Jul, [facility] [address] [place] [address] 33737- 5020 15 Jul, 2015 Encounter for dental examination and cleaning without abnormal findings Z01.20 [facility] [address] [address]- 9203 15 Jul, 2015 Encounter for immunization Z23 [facility] [id number] [place] [address] 28322 -9316 03 Jul, 2015 Needlestick injury accident W27.3XXA [facility] [id number] [place] [address] 56553- 0525 Feb, Encounter for immunization Z23 [facility] [id number] [place] [address] [id number] Dec, Dental examination V72.2 [facility] [address] [id number] Nov, Dental examination V72.2 [facility] [id number] [place] [address] 75939- 7251 Oct, [facility] [id number] [place] [address] 21091- 8750 September, [facility] [id number] [place] [address] 64101- 6020 September, [facility] [id number] [place] [address] 88685- 0543 September, [facility] [address] [place] [address] 71137- 5005 Aug, [facility] [address] [place] [address] 27999- 9665 Aug, [facility] [address] [place] [address] 66130- 8179 May, [facility] [id number] [place] [address] 88049- 2140 May, [facility] [id number] [place] [address] 22983- 4999 Mar, [facility] [id number] [place] [address] 34641- 5766 Mar, [facility] [place] [facility] [address] [id number] [place] [address]- 2345 Feb, [facility] [place] [facility] [address] [id number] [place] [address]- 1746 Feb, [facility] [place] [facility] [address] [id number] [place] [address]- 0160 Dec, [facility] [place] [facility] [address] [id number] [place] [address]- 3594 Dec, [facility] [place] [facility] [address] [id number] [place] [address]- 7510 Nov, [facility] [place] [facility] [address] [id number] [place] [address]- 2666 Nov, [facility] [place] [facility] [address] [id number] [place] [address]- 3625 Nov, [facility] [place] [facility] [address] [id number] [place] [address]- 3514 Nov, [facility] [place] [facility] [address] [id number] [place] [address]- 4822 Oct, [facility] [place] [facility] [address] [id number] [place] [address]- 2552 Oct, [facility] [place] [facility] [address] [id number] [place] [address]- 4451 Oct, [facility] [place] [facility] [address] [id number], [place] [address]- 1739 May, [facility] [place] [facility] [address] [id number] [place] [address]- 7068 May, [facility] [place] [facility] [address] [id number] [place] [address]- 7035 May, [facility] [place] [facility] [address] [id number] [place] [address]- 4929 May, [facility] [place] [facility] [address] [id number] [place] [address]- 3142 May, [facility] [address] [id number] [place] [address]- 8636 May, [facility] [address] [id number] [place] [address]- 5930 Apr, [facility] [address] [id number] [place] [address]- 5302 Apr, [facility] [place] [facility] [address] [id number] [place] [address]- 4162 Feb, [facility] [address] [id number] [place] [address]- 7903 Feb, [facility] [address] [id number] [place] [address]- 0548 Apr, [facility] [address] [id number] [place] [address]- 2730 Apr, [facility] [address] [id number] [place] [address]- 8981 Feb, [facility] [address] [id number] [place] [address]- 8776 Feb, [facility] [address] [id number] [place] [address]- 0704 Feb, [facility] [place] [facility] [address] [id number] [place] [address]- 1526 Feb, [facility] [address] [id number] [place] [address]- 8501 Oct, [facility] [place] [facility] [address] [id number] [place] [address]- 7910 Jul, [facility] [place] [facility] [address] [id number] [place] [address]- 3414 May, [facility] [place] [facility] [address] [id number] [place] [address]- 8044 May, [facility] [address] [facility] [id number], [place] [address]- 0359 May, [facility] [address] [facility] [id number], [place] [address]- 0476 May, [facility] [address] [facility] [id number], [place] [address]- 3734 Mar, [facility] [address] [facility] [id number], [place] [address]- 8116 Apr, [facility] [address] [facility] [id number], [place] [address]- 5961 Feb, [facility] [address] [facility] [id number], [place] [address]- 8133 Feb, IMMUNIZATIONS No Known Immunizations SOCIAL HISTORY Never Assessed REASON FOR VISIT crown consult PLAN OF CARE Activity Details Follow Up prn Reason:Replace [place] #19 VITAL SIGNS Blood pressure systolic 130 mmHg 2017-08-02 Blood pressure diastolic 79 mmHg 2017-08-02 MEDICATIONS Medication Instructions Dosage Frequency Start Date End Date Duration Status Metoprolol Tartrate 25 MG Orally Twice a day 1 tablet 12h Active Estradiol 1 MG Orally Once a day 1 tablet 24h Active Aspirin Adult Low Dose Active Toprol XL 25 MG Orally Once a day 1 tablet 24h 08 Oct, 2014 Unknown Progesterone 100 MG Orally Once a day 2 capsules at bedtime 24h Active Provera 2.5 MG Orally Once a day 2 tablets 24h Unknown Estriol Unknown Sudafed 60 mg Orally every 6 hrs 1 tablet as needed 6h 18 Feb, 2016 Active Pseudoephedrine HCl 60 mg Orally every 6 hrs 1 tablet as needed 6h 24 Aug, 2016 0 days Active RESULTS No Results PROCEDURES Procedure Date Ordered Result Body Site LTD ORAL EVALUATION - PROBLEM FOCUS August 02, 2017 BITEWING - SINGLE FILM August 02, 2017 Billing Notes on claim August 02, 2017 Dental no charge August 02, 2017 INSTRUCTIONS MEDICATIONS ADMINISTERED No Known Medications
--- OUTSIDE RECORDS SUMMARY | 2018-05-13 12:20 | XMS REPORT ---
Author BREE Mcclelland Organization [employer] Address Unknown Phone Unavailable Care Team Providers Care Molded Parts Inspector Name Role Phone BREE CHRISTENSEN CP Unavailable Allergies No Known Allergies Problems Problem Type Condition Code Onset Dates Condition Status Problem ZOSTAVAX DX V05.8 Active Problem Pure hypercholesterolemia 272.0 Active Problem Need for prophylactic vaccination and inoculation, Influenza V04.81 Active Problem Lateral epicondylitis of elbow 726.32 Active Assessment Encounter for immunization Z23 Active Problem Unspecified essential hypertension 401.9 Active Problem Dysuria 788.1 Active Medications No Known Medications Procedures Procedure Coding System Code Date SINGLE IMMUNIZATION ADMIN CPT-4 75614 Mar 25, 2015 FLUARIX QUAD (3 & UP)-GSK-2014 CPT-4 25935 Mar 25, 2015 Results No Known Results Immunizations Vaccine Administration Date FLUARIX QUAD (3 & UP)-GSK-2014Mar 25, 2015 Summary Purpose [employer] Submission
--- OUTSIDE RECORDS SUMMARY | 2018-05-13 12:20 | XMS REPORT ---
Author Author LORELEI GONZALEZ [facility] Address Unknown Care Team Providers Care Center Consultant Name Role Phone LORELEI GONZALEZ Unavailable PROBLEMS Type Condition ICD9-CM Code RHR15-XY Code Onset Dates Condition Status SNOMED Code Problem Need for prophylactic vaccination and inoculation, Influenza V04.81 Active 359820722 Problem ZOSTAVAX DX V05.8 Active 83267807 Problem Allergy, subsequent encounter T78.40XD Active 590527010 Problem Encounter for immunization Z23 Active 947836261 Problem Lateral epicondylitis of elbow 726.32 Active 481343987 Problem Dysuria 788.1 Active 83133407 Problem Pure hypercholesterolemia 272.0 Active 681817144 Problem Unspecified essential hypertension 401.9 Active 54352764 ALLERGIES No Information ENCOUNTERS Encounter Location Date Diagnosis [facility] [id number] [place] [address] 82376- 2826 Dec, [facility] [id number] [place] [address] [id number] Nov, Dental examination Z01.20 [facility] [address] [place] [address] 16533- 0486 Nov, Tooth sensitivity K03.89 [facility] [id number] [place] [address] [id number] Oct, Dental examination Z01.20 [facility] [id number] [place] [address] [id number] September, Dental examination Z01.20 [facility] [id number] [place] [address] 96051- 8103 September, [facility] [id number] [place] [address] 00725- 7391 September, [facility] [address] [id number] [id number] Aug, Dental examination Z01.20 [facility] [id number] [place] [address] [id number] Aug, Dental examination Z01.20 [facility] [id number] [place] [address] [id number] Jul, Dental examination Z01.20 [facility] [id number] [place] [address] 692214- 8536 Jul, Dental examination Z01.20 [facility] [id number] [place] [address] 394366- 1872 Feb, Encounter for immunization Z23 [facility] [id number] [place] [address] 90792- 6121 Jan, Dental examination Z01.20 [facility] [id number] [place] [address] 83144- 0566 Dec, Dental examination Z01.20 [facility] [id number] [place] [address] 61257- 2249 Aug, Allergy, subsequent encounter T78.40XD [facility] [address] [place] [address] 16498- 5354 Jul, Dental examination Z01.20 [facility] [address] [place] [address] 19550- 0559 Feb, [facility] [id number] [place] [address] 47043- 4430 Dec, Dental examination Z01.20 [facility] [address] [place] [address] 52238 -4830 Jul, [facility] [id number] [place] [address] 73581- 2049 Jul, Encounter for dental examination and cleaning without abnormal findings Z01.20 [facility] [id number] [place] [address] 31621- 8116 15 Jul, 2015 Encounter for immunization Z23 [facility] [address] [id number] -1777 Jul, Needlestick injury accident W27.3XXA [facility] [address] [id number], [place] [address]- 8036 Feb, Encounter for immunization Z23 [facility] [id number] [place] [address] [id number] Dec, Dental examination V72.2 [facility] [id number] [place] [address] [id number] Nov, Dental examination V72.2 [facility] [id number] [place] [address] 00015- 4526 Oct, [facility] [address] [place] [address] 63310- 0240 September, [facility] [id number] [place] [address] 66700- 1375 September, [facility] [id number] [place] [address] 57630- 5273 September, [facility] [address] [id number] [address]- 2073 Aug, [facility] [address] [id number], [place] [address]- 1700 Aug, [facility] [address] [id number], [place] [address]- 4814 May, [facility] [address] [id number], [place] [address]- 5285 May, [facility] [address] [id number] 6294 Mar, [facility] [address] [id number] 8726 Mar, [facility] [address] [id number] [place] [address]- 2546 Feb, [facility] [place] [facility] [address] [id number] [place] [address]- 1998 Feb, [facility] [place] [facility] [address] [id number] [place] [address]- 2546 Dec, [facility] [place] [facility] [address] [id number] [place] [address]- 6067 Dec, [facility] [place] [facility] [address] [id number] [place] [address]- 6869 Nov, [facility] [place] [facility] [address] [id number] [place] [address]- 6118 Nov, [facility] [place] [facility] [address] [id number] [place] [address]- 5883 Nov, [facility] [place] [facility] [address] [id number] [place] [address]- 8241 Nov, [facility] [place] [facility] [address] [id number] [place] [address]- 7517 Oct, [facility] [place] [facility] [address] [id number] [place] [address]- 4920 Oct, [facility] [place] [facility] [address] [id number] [place] [address]- 7989 Oct, [facility] [place] [facility] [address] [id number] [place] [address]- 4346 May, [facility] [place] [facility] [address] [id number] [place] [address]- 9403 May, [facility] [place] [facility] [address] [id number] [place] [address]- 4276 May, [facility] [place] [facility] [address] [id number] [place] [address]- 8492 May, [facility] [place] [facility] [address] [id number] [place] [address]- 0934 May, [facility] [place] [facility] [address] [id number] [place] [address]- 7320 May, [facility] [place] [facility] [address] [id number] [place] [address]- 5101 Apr, [facility] [place] [facility] [address] [id number] [place] [address]- 7959 Apr, [facility] [place] [facility] [address] [id number] [place] [address]- 4597 Feb, [facility] [place] [facility] [address] [id number] [place] [address]- 6824 Feb, [facility] [place] [facility] [address] [id number] [place] [address]- 3304 Apr, [facility] [place] [facility] [address] [id number] [place] [address]- 9572 Apr, [facility] [place] [facility] [address] [id number] [place] [address]- 4510 Feb, [facility] [place] [facility] [address] [id number] [place] [address]- 3513 Feb, [facility] [place] [facility] [address] [id number] [place] [address]- 8977 Feb, [facility] [place] [facility] [address] [id number] [place] [address]- 0116 Feb, [facility] [place] [facility] [address] [id number], [place] [address]- 9091 Oct, [facility] [place] [facility] [address] [id number] [place] [address]- 3895 Jul, [facility] [place] [facility] [address] [id number] [place] [address]- 9226 May, [facility] [place] [facility] [address] [id number], [place] [address]- 6160 May, [facility] [place] [facility] [address] [id number], [place] [address]- 7379 May, [facility] [address] [facility] [id number], [place] [address]- 3981 May, [facility] [address] [id number] [address]- 0333 Mar, [facility] [address] [facility] [id number], [place] [address]- 3104 Apr, [facility] [address] [id number] 9828 Feb, [facility] [address] [facility] [id number], [place] [address]- 1753 Feb, IMMUNIZATIONS No Known Immunizations SOCIAL HISTORY Never Assessed REASON FOR VISIT IMPRESSIONS PLAN OF CARE Activity Details Follow Up prn Reason:crown prep VITAL SIGNS MEDICATIONS Unknown Medications RESULTS No Results PROCEDURES Procedure Date Ordered Result Body Site Dental no charge September 08, 2017 INSTRUCTIONS MEDICATIONS ADMINISTERED No Known Medications
--- OUTSIDE RECORDS SUMMARY | 2018-05-13 12:20 | XMS REPORT ---
Author Author YAHAIRA GALLAGHER [facility] Address [address] [place] [address] Care Team Providers Care Dental Assisting Instructor Name Role Phone YAHAIRA GALLAGHER Unavailable PROBLEMS Type Condition ICD9-CM Code JPR96-QT Code Onset Dates Condition Status SNOMED Code Problem Need for prophylactic vaccination and inoculation, Influenza V04.81 Active 791075282 Problem ZOSTAVAX DX V05.8 Active 61191894 Problem Allergy, subsequent encounter T78.40XD Active 437788582 Problem Encounter for immunization Z23 Active 564652981 Problem Lateral epicondylitis of elbow 726.32 Active 602870957 Problem Dysuria 788.1 Active 32693073 Problem Pure hypercholesterolemia 272.0 Active 311808817 Problem Unspecified essential hypertension 401.9 Active 43270689 ALLERGIES No Known Allergies ENCOUNTERS Encounter Location Date Diagnosis [facility] [address] [id number] Aug, [facility] [address] [id number] Aug, Dental examination Z01.20 [facility] [id number] [place] [id number] Aug, Dental examination Z01.20 [facility] [address] [id number] Jul, Dental examination Z01.20 [facility] [id number] [place] [address]- 2725 Jul, Dental examination Z01.20 [facility] [id number] [place] [address] [id number]- [address]33 Feb, Encounter for immunization Z23 [facility] [address] [address] Jan, Dental examination Z01.20 [facility] [id number] [place] [address] 29971- 1416 Dec, Dental examination Z01.20 [facility] [id number] [place] [address]25- 2144 Aug, Allergy, subsequent encounter T78.40XD [facility] [address] [address]- [address] Jul, Dental examination Z01.20 [facility] [id number] [place] [address] 15132- 5717 Feb, [facility] [address] [address]47 Dec, Dental examination Z01.20 [facility] [id number] [place] [phone] Jul, [facility] [id number] [place] [address] 30886- 0592 Jul, Encounter for dental examination and cleaning without abnormal findings Z01.20 [facility] [id number] [place] [address]77- 5635 Jul, Encounter for immunization Z23 [facility] [id number] [place] [phone] Jul, Needlestick injury accident W27.3XXA [facility] [id number] [place] [address]8438- 9293 Feb, Encounter for immunization Z23 [facility] [id number] [place] [id number] Dec, Dental examination V72.2 [facility] [address] [id number] Nov, Dental examination V72.2 [facility] [id number] [place] [address]3611- 3322 Oct, [facility] [place] [facility] [address] [id number] [place] [address] September, [facility] [place] [facility] [address] [id number] [place] [address] 6[address] September, [facility] [place] [facility] [address] [id number] [place] [address] September, [facility] [place] [facility] [address] [id number] [place] [address] Aug, [facility] [place] [facility] [address] [id number] [place] [address]238 Aug, [facility] [place] [facility] [address] [id number] [place] [address]- 1153 May, [facility] [place] [facility] [address] [id number] [place] [address]- 6689 May, [facility] [place] [facility] [address] [id number] [place] [address]- 2091 Mar, [facility] [place] [facility] [address] [id number] [place] [address] 8327 Mar, [facility] [place] [facility] [address] [id number] [place] [address]- 9505 Feb, [facility] [place] [facility] [address] [id number] [place] [address]- 3672 Feb, [facility] [place] [facility] [address] [id number] [address] Dec, [facility] [place] [facility] [address] [id number] [place] [address]- 2279 Dec, [facility] [place] [facility] [address] [id number] [place] [address]- 2402 Nov, [facility] [place] [facility] [address] [id number] [place] [address]- 5294 Nov, [facility] [place] [facility] [address] [id number] [address] Nov, [facility] [place] [facility] [address] [id number] [place] [address]- 5558 Nov, [facility] [place] [facility] [address] [id number] [place] [address]- 2973 Oct, [facility] [place] [facility] [address] [id number] [place] [address]- 1255 Oct, [facility] [place] [facility] [address] [id number] [place] [address] 4803 Oct, [facility] [place] [facility] [address] [id number] [place] [address] 1901 May, [facility] [place] [facility] [address] [id number] [place] [address]- 8024 May, [facility] [place] [facility] [address] [id number], [place] [address] 1638 May, [facility] [place] [facility] [address] [id number] [place] [address]- 0615 May, [facility] [place] [facility] [address] [id number] [place] [address]- 5511 May, [facility] [place] [facility] [address] [facility] [id number] [place] [address]- 2334 May, [facility] [place] [facility] [address] [id number], [place] [address] 0111 Apr, [facility] [place] [facility] [address] [id number], [place] [address]- 8612 Apr, [facility] [place] [facility] [address] [id number] [place] [address]- 4295 Feb, [facility] [place] [facility] [address] [id number] [place] [address]- 8436 Feb, [facility] [place] [facility] [address] [id number] [place] [address]- 2052 Apr, [facility] [place] [facility] [address] [facility] [id number] [place] [address]- 1725 Apr, [facility] [address] [facility] [id number] [address]- 6025 Feb, [facility] [address] [facility] [id number] [place] [address]- 3476 Feb, [facility] [address] [facility] [id number], [place] [address] 3189 Feb, [facility] [address] [id number] [place] [address] Feb, [facility] [address] [facility] [id number] [place] [address]- 6439 Oct, [facility] [address] [facility] [id number], [place] [address] 3647 Jul, [facility] [address] [facility] [id number][place] [address]- 2332 May, [facility] [address] [facility] [id number], [place] [address]- 7752 May, [facility] [address] [facility] [id number][place] [address] May, [facility] [address] [facility] [id number][place] [address] May, [facility] [address] [id number], [place] [address]- 118[address] Mar, [facility] [address] [facility] [id number], [place] [address]- 1384 Apr, [facility] [address] [facility] [id number], [place] [address]- 7895 Feb, [facility] [address] [facility] [id number], [place] [address]- 5187 Feb, IMMUNIZATIONS No Known Immunizations SOCIAL HISTORY Never Assessed REASON FOR VISIT Dental Hygiene Recare PLAN OF CARE Activity Details Follow Up prn Reason:sebastain/radiographs VITAL SIGNS MEDICATIONS Medication Instructions Dosage Frequency Start Date End Date Duration Status Progesterone 100 MG Orally Once a day 2 capsules at bedtime 24h Active Sudafed 60 mg Orally every 6 hrs 1 tablet as needed 6h Feb, Active Aspirin Adult Low Dose Active Estradiol 1 MG Orally Once a day 1 tablet 24h Active Metoprolol Tartrate 25 MG Orally Twice a day 1 tablet 12h Active Pseudoephedrine HCl 60 mg Orally every 6 hrs 1 tablet as needed 6h Aug, 0 days Active RESULTS No Results PROCEDURES Procedure Date Ordered Result Body Site PROPHYLAXIS - ADULT Jan 19, 2017 TOPICAL FLUORIDE VARNISH Jan 19, 2017 [facility] Employee/Board adjustment Jan 19, 2017 Billing Notes on claim Jan 19, 2017 INSTRUCTIONS MEDICATIONS ADMINISTERED No Known Medications
--- OUTSIDE RECORDS SUMMARY | 2018-05-13 12:20 | XMS REPORT ---
Author Author YAHAIRA GALLAGHER Organization [facility] Address [address] [place] [address] Care Team Providers Care A&P Technician Name Role Phone YAHAIRA GALLAGHER Unavailable PROBLEMS Type Condition ICD9-CM Code DDA08-RY Code Onset Dates Condition Status SNOMED Code Problem Need for prophylactic vaccination and inoculation, Influenza V04.81 Active 936045787 Problem ZOSTAVAX DX V05.8 Active 26859106 Problem Allergy, subsequent encounter T78.40XD Active 067642566 Problem Encounter for immunization Z23 Active 700639844 Problem Lateral epicondylitis of elbow 726.32 Active 756215797 Problem Dysuria 788.1 Active 91803687 Problem Pure hypercholesterolemia 272.0 Active 717744352 Problem Unspecified essential hypertension 401.9 Active 56970855 ALLERGIES No Known Allergies SOCIAL HISTORY Never Assessed PLAN OF CARE Activity Details Follow Up 6 Months Reason:recare VITAL SIGNS MEDICATIONS Medication Instructions Dosage Frequency Start Date End Date Duration Status Sudafed 60 mg Orally every 6 hrs 1 tablet as needed 6h 18 Feb, 2016 Active Metoprolol Tartrate 25 MG Orally Twice a day 1 tablet 12h Active Aspirin Adult Low Dose Active Estradiol 1 MG Orally Once a day 1 tablet 24h Active Progesterone 100 MG Orally Once a day 2 capsules at bedtime 24h Active RESULTS No Results PROCEDURES Procedure Date Ordered Result Body Site PROPHYLAXIS - ADULT Jul 20, 2016 TOPICAL FLUORIDE VARNISH Jul 20, 2016 [facility] Employee/Board adjustment Jul 20, 2016 Billing Notes on claim Jul 20, 2016 IMMUNIZATIONS No Known Immunizations
--- NOTE | 2018-05-13 12:23 | Progress Note-Pre Operative ---
Pre-Operative Progress Note H&P Reviewed The H&P was reviewed, patient examined and no changes noted. Date Seen by Provider: May 13, 2018 Time Seen by Provider: 12:23 Date H&P Reviewed: May 13, 2018 Time H&P Reviewed: 12:23 Pre-Operative Diagnosis: Postmenopausal bleeding/intrauterine mass HUMPHREY CHAPA MD May 13, 2018 12:23
--- NOTE | 2018-05-13 12:24 | Progress Note-Post Operative ---
Post-Operative Progess Note Surgeon (s)/Cut Off Operator Scorer (s) Surgeon HUMPHREY CHAPA MD Cut Off Operator Scorer: Mala Timmons Pre-Operative Diagnosis Postmenopausal bleeding/intrauterine mass Post-Operative Diagnosis Same with pathology pending Procedure & Operative Findings Date of Procedure 05/13/18 Procedure Performed/Findings TL H with BSO Anesthesia Type GETA Estimated Blood Loss Estimated blood loss (mL): Minimal Specimens/Packing Specimens Removed Uterus fallopian tubes and ovaries Packing: HUMPHREY Garcia MD May 13, 2018 12:24
[2018-05-13] MEDS ORDERED: IBUP-1780 PO (12:26)
[2018-05-13] MEDS ORDERED: DOCU-143 PO (12:26)
[2018-05-13] MEDS ORDERED: OXYC1TAB87 PO (12:26)
[2018-05-13 12:30] VITALS: BP 137/96
[2018-05-13] MEDS: LACTATED RINGERS 1,000 ML IV PRN ×3 (12:30→16:04)
[2018-05-13] MEDS ORDERED: ceFAZolin INJECTION 1,000 MG in NS (IVPB) 50 ML IV ONE (12:30)
--- NOTE | 2018-05-13 12:31 | Discharge Instructions ---
Discharge Instructions Discharge Medications New, Converted or Re-Newed RX: RX on Chart Patient Instructions Patient Instructions: As directed Return to The Hospital For: As directed Activity & Diet Discharge Diet: No Restrictions Activity as Tolerated: No Orders-Post D/C & Referrals Follow Up Appt: Return to clinic on Wednesday, May 16, 2018 at 930 a.m. for staple removal Call to make follow up appt. for patient in 4 weeks. Activity: Rest for 24 hours, than as tolerated. Wound Care: May remove Band-Aid tomorrow. Replace as desired. Keep incisions clean and dry. Wash daily with soap and water. Please call in RX to patient pharmacy. Diet: As tolerated-Clear Liquids only if nauseated. May shower or tub bathe as desired. No driving for 24 hours, no alcoholic beverages for 24 hours, and nothing per vagina (no tampons, douching, or intercourse) for 8 weeks. Patient to return to the clinic as soon as possible for: Temperature greater than 101F, Severe Pain, Foul discharge from incision or vagina, Excessive Bleeding (more than a period). HUMPHREY CHAPA MD May 13, 2018 12:31
[2018-05-13] MEDS ORDERED: proPOfol 200 MG/20 ML (DIPRIVAN) VIAL IV ONE ×2 (13:07→14:04)
[2018-05-13] MEDS ORDERED: ROCURONIUM 10 MG/ML 5 ML SYRINGE IV ONE (13:07)
[2018-05-13] MEDS ORDERED: ONDANSETRON 4 MG/2 ML (SDV) Z0FRAN ONE (13:07)
[2018-05-13] MEDS ORDERED: GLYCOPYRROLATE 0.2 MG/ML (ROBINUL) 2 ML VIAL ONE (13:07)
[2018-05-13] MEDS ORDERED: SEVOFLURANE (ULTANE) 15 ML INHAL SOLN ONE (13:07)
[2018-05-13] MEDS ORDERED: DEXAMETHASONE 10 MG/ML (DECADRON) 1 ML VIAL ONE (13:07)
[2018-05-13] MEDS ORDERED: NEOSTIGMINE 1 MG/ML 5 ML SYRINGE ONE (13:07)
[2018-05-13] MEDS ORDERED: LIDOCAINE PF 2% 5 ML (XYLOCAINE) VIAL ONE (13:07)
[2018-05-13] MEDS ORDERED: MIDAZOLAM 2 MG/2 ML (VERSED) VIAL ONE (13:08)
[2018-05-13] MEDS ORDERED: fentaNYL INJECTION 100 MCG/2 ML AMP ONE (13:08)
[2018-05-13] MEDS ORDERED: BUP/EPI 0.5% 1:200,000 (SENSORCAINE) 30 ML VIAL ONE (13:33)
[2018-05-13] MEDS ORDERED: BUPIVACAINE 0.5% 30 ML (SENSORCAINE) VIAL ONE (14:05)
[2018-05-13] MEDS ORDERED: ESTROGENS CONJ IV 25 MG/5 ML (PREMARIN) VIAL ONE (15:59)
[2018-05-13] MEDS ORDERED: HYDROmorphone 2 MG/ML VIAL (DILAUDID) ONE (15:59)
[2018-05-13] MEDS ORDERED: WATER (STERILE) FOR INJECTION 10 ML ONE (15:59)
[2018-05-13] MEDS ORDERED: WATER (STERILE) FOR INJ 10 ML BTL INJ ONE (16:00)
[2018-05-13] MEDS ORDERED: KETOROLAC 30 MG/ML VIAL IVP ONE (16:00)
[2018-05-13] MEDS ORDERED: fentaNYL INJECTION 100 MCG/2 ML AMP IVP ONE (16:00)
[2018-05-13] MEDS ORDERED: ONDANSETRON 4 MG/2 ML (SDV) Z0FRAN IVP PRN ×2 (16:00)
[2018-05-13] MEDS ORDERED: morphine INJ 10 MG/ML 1ML (SYR OR VIAL) IVP ONE (16:00)
[2018-05-13] MEDS ORDERED: oxyCODONE/APAP 5/325MG (PERCOCET 5) TABLET PO PRN (16:00)
[2018-05-13] MEDS ORDERED: MEPERIDINE (DEMEROL) INJ 50 MG/ML IVP ONE (16:00)
[2018-05-13] MEDS ORDERED: PROMETHAZINE INJ 25 MG/ML (PHENERGAN) AMP IM PRN (16:00)
[2018-05-13] MEDS ORDERED: MEPERIDINE (DEMEROL) INJ 100 MG/ML IM PRN (16:00)
[2018-05-13] MEDS ORDERED: ESTROGENS CONJ IV 25 MG/5 ML (PREMARIN) VIAL IVP ONE (16:00)
[2018-05-13] MEDS: KETOROLAC 30 MG/ML VIAL IVP SCH ×2 (16:04→22:18)
[2018-05-13] MEDS ORDERED: HYDROmorphone 2 MG/ML VIAL (DILAUDID) IV ONE (16:30)
[2018-05-13 16:50] VITALS: BP 148/64
[2018-05-13 17:00] VITALS: BP 119/68
[2018-05-13 17:15] VITALS: BP 138/64
[2018-05-13 18:00] VITALS: BP 130/60
[2018-05-13] MEDS: D5 LR IV SOLUTION 1,000 ML IV SCH (18:42)
[2018-05-13 20:05] VITALS: BP 112/66
[2018-05-13] MEDS ORDERED: DOCUSATE SODIUM 100 MG (COLACE) CAP PO ONE (22:10)
[2018-05-14 00:55] VITALS: BP 107/64
--- NOTE | 2018-05-14 02:38 | OPERATIVE REPORT ---
DATE OF SERVICE: 05/13/2018 PREOPERATIVE DIAGNOSES: Postmenopausal bleeding, dysfunctional uterine bleeding and intrauterine mass. POSTOPERATIVE DIAGNOSES: Postmenopausal bleeding, dysfunctional uterine bleeding and intrauterine mass with pathology pending. OPERATIVE PROCEDURE: Total laparoscopic hysterectomy with bilateral salpingo-oophorectomy using da Walter robotic assistance. OPERATIVE DESCRIPTION: With the patient in the supine position under satisfactory general anesthesia, she was repositioned in the dorsal lithotomy position in the [facility] and prepped and draped in the usual fashion for abdominal and vaginal surgery. The urinary bladder was drained via Cornejo catheter to dependent drainage. Weighted speculum placed in the posterior fornix of vagina, cervix exposed and grasped anteriorly with single tooth tenaculum. Uterus was sounded to 9 cm with uterine sound. The cervix was then serially dilated with Alejandro dilators to accommodate Yu II manipulator, which was placed using a 6 mm x 6 cm uterine probe and a 30 mm colpotomy ring. Sutures of #1 Vicryl placed at 3 and 9 o'clock position of the cervix to affix the uterus to the manipulator. The patient was brought in low dorsal lithotomy position after the speculum and tenaculum were removed from the vagina. A 12 mm incision was made just superior to the umbilicus. Veress needle was placed through that incision into the abdominal cavity and correct placement confirmed with water drop test. The abdomen was insufflated with 2.4 liters of carbon dioxide. The Veress needle was removed and 12 mm Optiview laparoscopic port was placed. The abdominal wall was transilluminated. Then 8 mm ports were placed. An incision that sizes 9 cm lateral to the umbilicus at the level of the umbilicus. All three incision sites were infiltrated with 0.25% Marcaine with epinephrine prior to incision. The patient placed in Trendelenburg allowing the bowel to spill above the pelvis. The da Walter column was advanced on the patient and docked and then operative instruments were placed in the right and left lateral ports and I retired to the Sparkfly Walter console. At the console using the vessel sealer on the right and a bipolar fenestrated grasper on the left, the pelvis was first examined. The appendix was seen and it was a normal appendix. Both ovaries were atretic-appearing. Both fallopian tubes were normal, but somewhat atretic as well. The uterus was somewhat boggy and globular consistent with adenomyosis and/or fibroids. The intended procedure was initiated with plan to take out both tubes and ovaries with the uterus. The right tube and ovary were grasped and elevated. The ureter was identified medial to the IP ligament. The IP ligament was clamped, cauterized and divided that was continued stepwise across the mesovarium, across the broad ligament, across round ligament, down onto the cardinal ligament. Same procedure performed on the left, allowing for removal of both tubes and ovaries eventually with the uterus. The anterior lower uterine segment peritoneum was then divided with the bipolar fenestrated grasper in place of the vessel sealer. The colpotomy incision was then initiated at 12 o'clock position on to the cervix onto the colpotomy ring. The incision was then continued circumferentially until the entire colpotomy ring was exposed allowing for removal of the uterus with tubes and ovaries still attached through the vagina. The vaginal cuff was closed with a running suture of V-Loc barbed suture starting first on the right angle, continued just past the midportion and then starting back on the left angle and bring back to the midportion with last several stitches of the final suture used to bring the peritoneum back down on the vaginal cuff. Care was taken to include the uterine vessel pedicles and the closure for hemostasis. Both ureters were seemed to peristalse before and during the procedure and it was confirmed again now on completion of the procedure with the procedure complete. No abnormal pathology. The procedure was terminated. The operative instruments removed under direct vision as were the ports. The abdomen was evacuated with insufflating gas in the process of removing the ports. The skin incision was closed with millicent. The fascia at the supraumbilical incision was closed with [id number] suture of 2-0 Vicryl. Speculum was replaced in the vagina. Vaginal cuff was examined and was found completely hemostatic and completely reapproximated. Sponge and needle counts were correct. Estimated blood loss was minimal. The patient tolerated the procedure well and was uneventfully awakened from general anesthesia and transferred to recovery room in stable condition. Job ID: [id number] DocumentID: [id number] Dictated Date: 05/13/2018 15:38:13 Rubber Roller Grinder Date: 05/14/2018 02:37:31 Dictated By: HUMPHREY CHAPA MD
[2018-05-14] MEDS: D5 LR IV SOLUTION 1,000 ML IV SCH (02:45)
[2018-05-14 04:35] VITALS: BP 101/62
[2018-05-14] MEDS: KETOROLAC 30 MG/ML VIAL IVP SCH (04:39)
[2018-05-14 08:00] VITALS: BP 114/69
[2018-05-14] MEDS ORDERED: ACETAMINOPHEN 325 MG TABLET PO PRN (08:00)
--- NOTE | 2018-05-14 08:10 | Progress Note-Standard ---
Standard Progress Note Progress Notes/Assess & Plan Date Seen by a Provider: May 14, 2018 Time Seen by a Provider: 08:09 Progress/Assessment & Plan This patient is without complaint. She is ambulating, voiding, tolerating oral intake well, patient has good pain control. Patient denies chest pain, denies shortness of breath, denies nausea vomiting, and denies headache. Patient is requesting discharge home. Vital Signs 05/14/18 04:35 Temp 99.3 Pulse 68 Resp 16 B/P (MAP) 101/62 (75) Pulse Ox 99 O2 Delivery Room Air Vital signs are stable. Patient is afebrile. The abdomen is benign. Extremities show no clubbing cyanosis. There is no Homans sign. Assessment and plan postoperative day number 1 doing well plan is for discharge home with follow-up in clinic Final Diagnosis Postmenopausal bleeding HUMPHREY CHAPA MD May 14, 2018 08:10
[2018-05-14] MEDS ORDERED: DOCUSATE SODIUM 100 MG (COLACE) CAP PO SCH (09:00)
[2018-05-14] MEDS ORDERED: ESTRADIOL 1 MG TAB (ESTRACE) PO SCH (09:00)
--- NOTE | 2018-05-14 12:04 | Anesthesia-General Post-Op ---
General Patient Condition Mental Status/LOC: Same as Preop Cardiovascular: Satisfactory Nausea/Vomiting: Absent Respiratory: Satisfactory Pain: Controlled Complications: Absent Post Op Complications Complications None Follow Up Care/Instructions Patient Instructions None needed. Anesthesia/Patient Condition Patient Condition Patient is doing well, no complaints, stable vital signs, no apparent adverse anesthesia problems. No complications reported per nursing. MARJORIE GREENE CRNA May 14, 2018 12:04
[2018-05-14] MEDS ORDERED: IBUPROFEN 800 MG (MOTRIN) TAB PO SCH (18:00)
== END 2018-05-14 09:40 | disposition home or self-care (01) ==
LOC: SDC 12:10 → WS 17:09 → SDC 05-14 09:40
PROVIDERS: ATTEND Obstetrics & Gynecology
DX: N95.0 Postmenopausal bleeding (principal); D25.1 Intramural leiomyoma of uterus; N93.8 Other specified abnormal uterine and vaginal bleeding; N85.9 Noninflammatory disorder of uterus, unspecified; I49.9 Cardiac arrhythmia, unspecified; Z79.82 Long term (current) use of aspirin; Z79.899 Other long term (current) drug therapy
CPT/HCPCS: 86850; 86900; 86901; 88307; 94664

== ENCOUNTER → 2018-05-30 | Outpatient (CLI) | payer OTHER ==
[~2018-05-30] MED LIST changes: +DOCU-143 PO; +IBUP-1780 PO; +OXYC1TAB87 PO
== END ==
LOC: CARD 08:56
PROVIDERS: ATTEND Internal Medicine Cardiovascular Disease
DX: R00.2 Palpitations (principal); I49.3 Ventricular premature depolarization; I10 Essential (primary) hypertension; J30.2 Other seasonal allergic rhinitis; I08.1 Rheumatic disorders of both mitral and tricuspid valves; Z82.49 Family history of ischemic heart disease and other diseases of the circulatory system
CPT/HCPCS: 93306

== ENCOUNTER → 2019-06-30 | Outpatient (CLI) | payer OTHER ==
[~2019-06-30] MED LIST changes: -METO-387 PO; +MTP25TSR PO
--- NOTE | 2019-06-30 15:50 | Diagnostic Imaging Report ---
INDICATION: Routine screening. Comparison is made with prior mammograms from 04/27/2018 and 08/25/2016. 2-D and 3-D bilateral screening mammography was performed. The current study was also evaluated with a Computer Aided Detection (CAD) system. 3-D tomosynthesis was also performed and reviewed. FINDINGS: Both breasts are heterogeneously dense, limiting the sensitivity of mammography. No mass or malignant-appearing microcalcifications are seen. Axillae are unremarkable. IMPRESSION: No mammographic features suspicious for malignancy are identified. ACR BI-RADS Category 1: Negative. Result letter will be mailed to the patient. Note: At least 10% of breast cancer is not imaged by mammography. Dictated by: Dictated on workstation # [id number]
== END ==
LOC: RAD 07:33
PROVIDERS: ATTEND Obstetrics & Gynecology
DX: Z12.31 Encounter for screening mammogram for malignant neoplasm of breast (principal)
CPT/HCPCS: 77067

== ENCOUNTER 2020-03-06 05:39 | Outpatient (RCR) | payer OTHER ==
[~2020-03-06] VITALS: Ht 160 cm; Wt 52.2 kg
[~2020-03-06 05:39] MED LIST changes: +ASPI-999 PO; +LORA10TA7 PO
== END 2020-03-06 15:24 | disposition home or self-care (01) ==
LOC: PREOP 05:39
PROVIDERS: ATTEND Internal Medicine
DX: Z01.812 Encounter for preprocedural laboratory examination (principal); Z12.11 Encounter for screening for malignant neoplasm of colon; Z20.828 Contact with and (suspected) exposure to other viral communicable diseases
CPT/HCPCS: 87635

== ENCOUNTER 2020-03-08 08:56 | Day surgery (SDC) | payer OTHER ==
--- NOTE | 2020-03-03 08:32 | HISTORY AND PHYSICAL ---
DATE OF SERVICE: COLONOSCOPY HISTORY AND PHYSICAL HISTORY OF PRESENT ILLNESS: The patient is a 59-year-old white female referred by Dr. Cooney for screening colonoscopy. She had one other screening colonoscopy 10 years ago that was reportedly unremarkable. She is deemed to be of average risk as she is not aware of any family history for colon cancer or colon polyps. She denies bowel habit change, melena, bright red blood per rectum, diarrhea or constipation. PAST MEDICAL HISTORY: She reports history of premature heart beats. She is not sure if the PACs or PVCs. Echocardiogram was normal and she was started on metoprolol ER [address] Olea, which has taken care of her symptoms that she predominantly just noted at rest at night. She does report a history of allergic rhinitis and over the past 6 months has noted the onset of exercise-induced cough and wheezing. Sometimes she has to slow down, it does not keep her from exercise and she does not have the symptoms except after brisk walks or predominant form of exercise and usually not until 1 to 2 miles into a 3-mile walk. PAST SURGICAL HISTORY: Significant for hysterectomy that done for benign reasons per Dr. Cooney. FAMILY HISTORY: Father at the age of 83, complications of lung and bladder cancer. They were felt to be 2 separate primaries. He also had coronary artery bypass grafting at the age of 48 and was a heavy smoker. Mother at the age of 83, had rheumatoid arthritis and succumbed sepsis. She has 2 brothers and 2 sisters; one brother has history of asthma and smokes and another health problems. The remaining 3 siblings have no reported health problems. MEDICATIONS ON ADMISSION: Include a baby aspirin daily, estradiol 1 mg daily, and metoprolol ER 25 mg. REVIEW OF SYSTEMS: CONSTITUTIONAL: The patient denies night sweats, chills, fever or change in weight and has always been thin. PULMONARY: Pertinent for wheezing with exertion only and cough with exertion only. Denies shortness of breath. CARDIOVASCULAR: Denies chest pain, orthopnea, PND or pedal edema. Has no history of syncope or presyncope. GASTROINTESTINAL: As noted in the HPI. PHYSICAL EXAMINATION: GENERAL: Reveals a thin white female, appears to be in no acute distress. VITAL SIGNS: Weight 119.8 pounds, blood pressure 120/80. HEENT: Unremarkable. CHEST: Clear. CARDIOVASCULAR: Reveals a regular rate and rhythm without murmur, S3 or S4. ABDOMEN: Soft, supple without mass, organomegaly or tenderness. EXTREMITIES: Reveal no cyanosis, clubbing or edema. SKIN: Evaluation reveals no suspicious nevi. ASSESSMENT AND PLAN: 1. The patient is set up for screening colonoscopy. Prep instructions and Suprep kit were given and questions were answered. 2. Symptoms compatible with exercise-induced asthma. We will try Singulair, this is all been going on for the past 6 months. We will question her at the time of colonoscopy about whether or not there is any association with the onset of metoprolol, if so need to consider discontinuing use. She was given Singulair to try 10 mg daily, if this is not effective, discontinue metoprolol is not effective, consider bronchodilator therapy prior to exercise. She has warned however, this may aggravate palpitations. The patient will continue Claritin for allergic rhinitis in case there is a contributing factor to her asthma. Job ID: [id number] DocumentID: [id number] Dictated Date: 02/29/2020 11:58:46 Oil Painter Date: 02/29/2020 12:25:22 Dictated By: KEVIN CURTIS MD
[2020-03-08] VITALS (11 sets, daily range): BP systolic 100–139; BP diastolic 60–92
[~2020-03-08] VITALS: Ht 160 cm; Wt 52.2 kg
[2020-03-08] MEDS ORDERED: LACTATED RINGERS 1,000 ML IV ONE (08:58)
[2020-03-08] MEDS ORDERED: D5 LR IV SOLUTION 1,000 ML IV STA (09:16)
[2020-03-08] MEDS ORDERED: fentaNYL INJECTION 100 MCG/2 ML AMP IVP ONE (09:30)
[2020-03-08] MEDS ORDERED: MIDAZOLAM 5 MG/5 ML (VERSED) VIAL IV ONE (09:30)
[2020-03-08] MEDS ORDERED: LACTATED RINGERS 1,000 ML IV SCH ×2 (09:30→09:45)
[2020-03-08] MEDS ORDERED: LIDOCAINE JELLY 2% 6 ML SYRINGE ONE (09:55)
[2020-03-08] MEDS ORDERED: fentaNYL INJECTION 100 MCG/2 ML AMP ONE (09:56)
[2020-03-08] MEDS ORDERED: MIDAZOLAM 5 MG/5 ML (VERSED) VIAL ONE (09:56)
--- NOTE | 2020-03-08 10:00 | Pre-Op Note & Conscious Sedat ---
Pre-Operative Progress Note H&P Reviewed The H&P was reviewed, patient examined and no changes noted. Date H&P Reviewed: Mar 08, 2020 Time H&P Reviewed: 09:58 Conscious Sedation Pre-Proced ASA Score 1 For ASA 3 and 4: Consider anesthesia and medical clearance. Also, for patients with a history of failed moderate sedation consider anesthesia. Airway Lungs Heart ASA score ASA 1: a normal healthy patient ASA 2: a patient with a mild systemic disease (mid diabetes, controlled hypertension, obesity ASA 3: a patient with a severe systemic disease that limits activity (angina, COPD, prior Myocardial infarction) ASA 4: a patient with an incapacitating disease that is a constant threat to life (CHF, renal failure) ASA 5: a moribund patient not expected to survive 24 hrs. (ruptured aneurysm) ASA 6: a declared brain- patient whose organs are being harvested. For emergent operations, add the letter E after the classification Mallampati Classification Grade 1 Sedation Plan Analgesia, Amnesia, Plan communicated to team members, Discussed options with patient/fam, Discussed risks with patient/fam The patient is an appropriate candidate to undergo the planned procedure, sedation, and anesthesia. The patient immediately re-assessed prior to indication. KEVIN CURTIS MD Mar 08, 2020 10:00
[2020-03-08] MEDS ORDERED: LIDOCAINE JELLY 2% 6 ML SYRINGE TOP ONE (11:15)
--- NOTE | 2020-03-08 21:21 | OPERATIVE REPORT ---
DATE OF SERVICE: COLONOSCOPY SUMMARY INDICATION FOR THE PROCEDURE: Screening colonoscopy. DESCRIPTION OF PROCEDURE: The patient was placed in the left lateral decubitus position. Prior to undergoing colonoscopy, digital rectal evaluation was performed. Anal sphincter tone was normal and the perianal reflexes intact. No abnormalities were noted on digital inspection of anal canal or distal rectal vault. The colonoscope was then inserted into the rectum and under direct visualization advanced to cecum. The cecum was identified by identification of the ileocecal valve and cecal strap. Photographic documentation was obtained. Careful inspection was made as the colonoscope was withdrawn. The patient tolerated the procedure well and the quality of the prep was good. There was no evidence for internal or external hemorrhoids and the rectum, sigmoid colon, descending colon and transverse colon were unremarkable. Present in the proximal ascending colon was a harris 3 mm sessile polyp that was photographed and biopsied and ablated with no blood loss. The remainder of the ascending colon and cecum were unremarkable. ASSESSMENT: One diminutive polyp was removed from the proximal ascending colon with an otherwise normal colonoscopy to the cecum. The patient is not aware of any family history for colon cancer, we will advise repeat screening colonoscopy in 10 years. Job ID: [id number] DocumentID: [id number] Dictated Date: 03/08/2020 11:21:45 Power System Electrical Engineer Date: 03/08/2020 21:20:38 Dictated By: KEVIN CURTIS MD
== END 2020-03-08 11:49 | disposition home or self-care (01) ==
LOC: ENDO 08:56
PROVIDERS: ATTEND Internal Medicine
DX: Z12.11 Encounter for screening for malignant neoplasm of colon (principal); K63.5 Polyp of colon; I49.40 Unspecified premature depolarization; J30.9 Allergic rhinitis, unspecified; Z79.890 Hormone replacement therapy; Z79.82 Long term (current) use of aspirin; Z79.899 Other long term (current) drug therapy

== ENCOUNTER → 2020-07-01 | Outpatient (CLI) | payer OTHER ==
--- NOTE | 2020-07-01 09:35 | Diagnostic Imaging Report ---
INDICATION: Routine screening. Comparison is made prior mammogram 06/30/2019 and 04/27/2018. 2-D and 3-D bilateral screening mammography was performed with CAD. Scattered fibroglandular densities are identified bilaterally. No mass or malignant appearing microcalcifications are identified. Axillae are unremarkable. IMPRESSION: BI-RADS Category 1 No mammographic features suspicious for malignancy are identified. ACR BI-RADS Category 1: Negative. Result letter will be mailed to the patient. Note: At least 10% of breast cancer is not imaged by mammography. Dictated by: Dictated on workstation # [id number]
== END ==
LOC: RAD 07:30
PROVIDERS: ATTEND Obstetrics & Gynecology
DX: Z12.31 Encounter for screening mammogram for malignant neoplasm of breast (principal)
CPT/HCPCS: 77063; 77067

== ENCOUNTER → 2021-07-02 | Outpatient (CLI) | payer OTHER ==
[2021-07-02 09:40] VITALS: BP 123/82
--- NOTE | 2021-07-02 11:39 | Cardiology Stress Test Report ---
Stress Test Report Date of Procedure/Referring: Date of Procedure: Jul 02, 2021 PCP Christy Olea MD Admitting Physician Iraj Galicia MD Indications: CP Baseline Heart Rate: 82 Baseline Blood Pressure: Blood Pressure Systolic: 123 Blood Pressure Diastolic: 82 Baseline EKG: Baseline EKG: NSR Summary/Conclusion: Summary: In summary, the patient started exercising with a baseline heart rate, blood pressure and EKG mentioned above Patient was able to exercise for a total of 8 minutes on Thomas protocol, METs 9.7 Maximum heart rate 142 Maximum blood pressure 163/86 Stress EKG, Minimal nondiagnostic changes Recovery EKG , Return to baseline Conclusion: 1. Good exercise tolerance for a total of 8 minutes on Thomas protocol, 9.7 METs, achieving 89 percent of maximum expected heart rate 2. Minimal nondiagnostic EKG changes with exercise returned to baseline during recovery 3. Occasional PVCs noted during exercise test result in recovery CHRISTY OLEA MD Jul 02, 2021 11:39
== END ==
LOC: CARD 09:20
PROVIDERS: ATTEND Internal Medicine Cardiovascular Disease
DX: R07.9 Chest pain, unspecified (principal); R00.2 Palpitations
CPT/HCPCS: 93017

== ENCOUNTER → 2021-07-25 | Outpatient (CLI) | payer OTHER ==
--- NOTE | 2021-07-25 10:58 | Diagnostic Imaging Report ---
INDICATION: Routine screening. COMPARISON: 07/01/2020 and 06/30/2019. TECHNIQUE: 2D and 3D bilateral screening mammography was performed with CAD. FINDINGS: Both breasts are heterogeneously dense, limiting the sensitivity of mammography. The parenchymal pattern is stable. No mass or malignant-appearing microcalcifications are seen. The axillae are unremarkable. IMPRESSION: No mammographic features suspicious for malignancy are identified. ACR BI-RADS Category 1: Negative. Result letter will be mailed to the patient. Note: At least 10% of breast cancer is not imaged by mammography. Dictated by: Dictated on workstation # [id number]
== END ==
LOC: RAD 08:00
PROVIDERS: ATTEND Obstetrics & Gynecology
DX: Z12.31 Encounter for screening mammogram for malignant neoplasm of breast (principal)
CPT/HCPCS: 77063; 77067

== ENCOUNTER → 2022-05-19 | Outpatient (CLI) | payer OTHER ==
--- NOTE | 2022-05-19 17:07 | Diagnostic Imaging Report ---
INDICATION: Postmenopausal screening. COMPARISON: None. FINDINGS: AP Spine L1-L4: [BMD (g/cm2): 1.314] [T-Score: 1.0] [Z-Score: 2.7] [BMD Previous: NA] [BMD % Change: NA] LT Hip Neck: [BMD (g/cm2): 0.882] [T-Score: -1.1] [Z-Score: 0.5] LT Hip Total: [BMD (g/cm2):0.984] [T-Score:-0.2] [Z-Score: 1.2] [BMD Previous: NA] [BMD % Change: NA] RT Hip Neck: [BMD (g/cm2):0.879] [T-Score:-1.1] [Z-Score:0.5] RT Hip Total: [BMD (g/cm2):0.982] [T-score:-0.2] [Z-Score:1.1] [BMD Previous:NA] [BMD % Change:NA] *Indicates significant change from prior examination based on 95% confidence level. World Health Organization criteria for BMD interpretation classify patients as Normal (T-score at or above -1.0), Osteopenic (T-score between -1.0 and -2.5) or Osteoporotic (T-score at or below -2.5). LIMITATIONS AND MODIFICATION: None. FRACTURE RISK (FRAX SCORE): The ten year probability of (%): Major Osteoporotic Fracture: [NA] Hip Fracture: [NA] IMPRESSION: 1. Normal bone mineral density. 2. Baseline examination. 3. See below National Osteoporosis Foundation guidelines on when to potentially initiate pharmacologic therapy. Based on the National Osteoporosis Foundation Guidelines, pharmacologic treatment should be initiated in any of the following, unless clinical conditions suggest otherwise: * Any patient with prior fragility fracture of the hip or vertebrae. A spine fracture indicates 5X risk for subsequent spine fracture and 2X risk for subsequent hip fracture. * Osteoporosis (T-score <-2.5). * Postmenopausal women and men age 50 and older with low bone mass/osteopenia (T-score between -1.0 and -2.5) by DXA and 10-year major osteoporotic fracture greater than 20% or a 10-year probability of hip fracture greater than 3%. These fracture risks are supplied above in the FRAX score, if applicable. * Clinician judgement and/or patient preferences may indicate treatment for people with 10-year fracture probabilities above or below these levels. Dictated by: Dictated on workstation # [id number]
== END ==
LOC: RAD 14:16
PROVIDERS: ATTEND Internal Medicine
DX: Z13.820 Encounter for screening for osteoporosis (principal); Z78.0 Asymptomatic menopausal state
CPT/HCPCS: 77080

== ENCOUNTER → 2022-07-27 | Outpatient (CLI) | payer OTHER ==
--- NOTE | 2022-07-27 09:26 | Diagnostic Imaging Report ---
INDICATION: Routine screening. COMPARISON: 07/25/2021 and 07/01/2020. TECHNIQUE: 2D and 3D bilateral screening mammography was performed with CAD. FINDINGS: Scattered fibroglandular densities are identified bilaterally. The parenchymal pattern is stable. No dominant mass or malignant-appearing microcalcifications are seen. The axillae are unremarkable. IMPRESSION: No mammographic features suspicious for malignancy are identified. ACR BI-RADS Category 1: Negative. Result letter will be mailed to the patient. Note: At least 10% of breast cancer is not imaged by mammography. Dictated by: Dictated on workstation # [id number]
== END ==
LOC: RAD 07:20
PROVIDERS: ATTEND Obstetrics & Gynecology
DX: Z12.31 Encounter for screening mammogram for malignant neoplasm of breast (principal)
CPT/HCPCS: 77063; 77067